=== PATIENT | female | born 1975 | race Two or more races ===

== ENCOUNTER → 2024-03-16 | Outpatient (CLI) | payer MEDICAID, SELFPAY ==
--- NOTE | 2024-03-16 13:34 | ECHO_ITS ---
Transthoracic Echo Report Ht (in): 66 Wt (lb): 156 Exam Location: Echo Lab Status: Outpatient Technical Services Representative: Yamilet Palencia Indications: Procedure Performed: BP: / HR: Rhythm: Sinus Technical Quality: Fair MEASUREMENTS (Male / Female) Normal Values 2D ECHO LV Diastolic Diameter PLAX 4.3 cm 4.2 - 5.9 / 3.9 - 5.3 cm LV Systolic Diameter PLAX 2.9 cm IVS Diastolic Thickness 0.6 cm 0.6 - 1.0 / 0.6 - 0.9 cm LVPW Diastolic Thickness 0.7 cm 0.6 - 1.0 / 0.6 - 0.9 cm LV Relative Wall Thickness 0.3 LVOT Diameter 1.7 cm LA Volume Index 17.3 cm?/m? 16 - 28 cm?/m? Ascending Aorta Diameter 2.5 cm M-MODE Aortic Root Diameter MM 2.7 cm LA Systolic Diameter MM 3.4 cm LA Ao Ratio MM 1.3 AV Cusp Separation MM 1.9 cm DOPPLER AV Peak Velocity 126.0 cm/s AV Peak Gradient 6.4 mmHg AV Mean Gradient 4.0 mmHg AV Velocity Time Integral 26.4 cm LVOT Peak Velocity 126.0 cm/s LVOT Peak Gradient 6.4 mmHg LVOT Velocity Time Integral 23.9 cm AV Area Cont Eq vti 2.1 cm? AV Area Cont Eq pk 2.3 cm? MV Peak Velocity 73.2 cm/s MV Peak Gradient 2.1 mmHg MV Mean Velocity 50.8 cm/s MV Mean Gradient 1.0 mmHg MV Area PHT 4.4 cm? Mitral E Point Velocity 64.0 cm/s Mitral A Point Velocity 80.0 cm/s Mitral E to A Ratio 0.8 LV E' Lateral Velocity 9.3 cm/s Mitral E to LV E' Lateral Ratio 6.9 LV E' Septal Velocity 9.4 cm/s Mitral E to LV E' Septal Ratio 6.8 FINDINGS Left Ventricle Normal left ventricular size, wall thickness, systolic function with no obvious regional wall motion abnormalities. The ejection fraction is visually estimated at 55-60%. Right Ventricle The right ventricle is normal in size and systolic function. Left Atrium The left atrium is normal by two-dimensional, color flow and Doppler imaging with no structural abnormalities, no thrombus formation present. Right Atrium The right atrium is normal by two-dimensional imaging, color flow and Doppler imaging with no struct ural abnormalities, no thrombus formation present. Atrial Septum The interatrial septum appears normal with no evidence of a shunt. Aorta The aorta is normal by two-dimensional, color flow and Doppler interrogation. Mitral Valve The mitral valve is normal by two-dimensional, color flow and Doppler interrogation. There is trace mitral valve regurgitation. Aortic Valve The aortic valve is trileaflet and normal by two-dimensional, color flow and Doppler interrogation. There is trace aortic valve regurgitation. Tricuspid Valve The tricuspid valve is normal by two-dimensional, color flow and Doppler interrogation. There is tra ce tricuspid valve regurgitation. Pulmonic Valve There is no significant pulmonic valve regurgitation. Vessels The pulmonary artery appears normal. The inferior vena cava pulmonary and hepatic veins appear josephine l. Pericardium The pericardium is normal by two-dimensional imaging. There is no significant pericardial effusion. CONCLUSIONS Indication: Malignant neoplasm upper-outer quadrant of r breast. Normal LV size and function. Estimated EF 55-60%. Stage 1 diastolic dysfunction. Normal RV size and function. Trace MR, AI, TR. Don Covington (Electronically Signed) Final Date: 16 March 2024 15:34
== END | disposition home or self-care (01) ==
PROVIDERS: PCP Internal Medicine; Referring Provider Internal Medicine Hematology & Oncology; Visit Provider Internal Medicine Hematology & Oncology
DX: I08.3 Combined rheumatic disorders of mitral, aortic and tricuspid valves (principal); C50.411 Malignant neoplasm of upper-outer quadrant of right female breast
CPT/HCPCS: 93306

== ENCOUNTER → 2024-06-30 | Outpatient (CLI) | payer MEDICAID, SELFPAY ==
--- NOTE | 2024-06-30 13:30 | ECHO_ITS ---
Transthoracic Echo Report Ht (in): 66 Wt (lb): 135 Exam Location: [facility] Status: Preadmit Patrol Sergeant: EDWIN Dong^^^^ Indications: Procedure Performed: BP: 118 / 73 HR: 75 Rhythm: Sinus Technical Quality: Good MEASUREMENTS (Male / Female) Normal Values 2D ECHO LV Diastolic Diameter PLAX 4.0 cm 4.2 - 5.9 / 3.9 - 5.3 cm LV Systolic Diameter PLAX 2.7 cm IVS Diastolic Thickness 0.7 cm 0.6 - 1.0 / 0.6 - 0.9 cm LVPW Diastolic Thickness 0.6 cm 0.6 - 1.0 / 0.6 - 0.9 cm LV Relative Wall Thickness 0.3 LVOT Diameter 1.6 cm Aortic Root Diameter 2.5 cm LA Systolic Diameter LX 3.0 cm 3.0 - 4.0 / 2.7 - 3.8 cm LA Volume Index 24.8 cm?/m? 16 - 28 cm?/m? Ascending Aorta Diameter 2.2 cm DOPPLER AV Peak Velocity 129.5 cm/s AV Peak Gradient 6.7 mmHg AV Mean Gradient 5.0 mmHg AV Velocity Time Integral 28.0 cm LVOT Peak Velocity 104.0 cm/s LVOT Peak Gradient 4.3 mmHg LVOT Velocity Time Integral 21.9 cm LVOT Cardiac Index 1954.7 cm?/min?m? AV Area Cont Eq vti 1.6 cm? AV Area Cont Eq pk 1.6 cm? MV Area PHT 4.1 cm? Mitral E Point Velocity 65.0 cm/s Mitral A Point Velocity 85.4 cm/s Mitral E to A Ratio 0.8 LV E' Lateral Velocity 9.1 cm/s Mitral E to LV E' Lateral Ratio 7.1 LV E' Septal Velocity 8.7 cm/s Mitral E to LV E' Septal Ratio 7.5 TR Peak Velocity 205.0 cm/s TR Peak Gradient 16.8 mmHg PV Peak Velocity 74.6 cm/s PV Peak Gradient 2.2 mmHg RVOT Peak Velocity 60.6 cm/s FINDINGS Left Ventricle Normal left ventricular size, wall thickness, systolic function with no obvious regional wall motion abnormalities. There is grade I diastolic dysfunction of the left ventricle (impaired relaxation pattern). The left ventricular ejection fraction is normal, estimated at 60-65%. Right Ventricle The right ventricle is normal in size and systolic function. The estimated right ventricular systolic pressure, 19 mmHg. Left Atrium The left atrium is normal by two-dimensional, color flow and Doppler imaging with no structural abnormalities, no thrombus formation present. Right Atrium The right atrium is normal by two-dimensional imaging, color flow and Doppler imaging with no structural abnormalities, no thrombus formation present. Atrial Septum The interatrial septum appears normal with no evidence of a shunt. Aorta The aorta is normal by two-dimensional, color flow and Doppler interrogation. Mitral Valve Trace to mild mitral regurgitation. Aortic Valve The aortic valve is trileaflet and normal by two-dimensional, color flow and Doppler interrogation. There is no significant aortic valve regurgitation. Tricuspid Valve There is mild tricuspid valve regurgitation. Pulmonic Valve Trivial pulmonic valve regurgitation. Vessels The pulmonary artery appears normal. The inferior vena cava pulmonary and hepatic veins appear normal. Pericardium The pericardium is normal by two-dimensional imaging. There is no significant pericardial effusion. CONCLUSIONS indication: cancer center The transthoracic study is normal by two-dimensional, color flow imaging and Doppler interrogation. Normal left ventricular size and function. Approximate ejection fraction is 65% Trace mitral and trace tricuspid regurgitation Lorene Welch (Electronically Signed) Final Date: 30 June 2024 14:59
== END | disposition home or self-care (01) ==
LOC: SDIM 13:26
PROVIDERS: PCP Family Medicine; Referring Provider Internal Medicine Hematology & Oncology; Visit Provider Internal Medicine Hematology & Oncology
DX: I08.1 Rheumatic disorders of both mitral and tricuspid valves (principal); C50.411 Malignant neoplasm of upper-outer quadrant of right female breast
CPT/HCPCS: 93306

== ENCOUNTER → 2024-07-20 | Outpatient (CLI) | payer MEDICAID, SELFPAY ==
[2024-07-20 08:37] LABS: Basophils % (Auto) 1 % (0-2.5); Eosinophils % (Auto) 0 % (0-10); Hematocrit 41.5 % (36.0-46.0); Hemoglobin 14.2 g/dL (12.0-16.0); Immature Granulocytes % (Auto) 0 % (0-0); Immature Granulocytes Auto 0.02 Thou/mm3 (0.00-0.00); Lymphocytes # (Auto) 2.1 Thou/mm3 (1.0-4.8); Lymphocytes % (Auto) 37 % (10-50); Mean Corpuscular HGB Conc 34.2 g/dl (31.0-37.0); Mean Corpuscular Hemoglobin 30.8 pg (25.0-35.0); Mean Corpuscular Volume 90 fL (80-100); Monocytes # (Auto) 0.5 Thou/mm3 (0.0-0.8); Monocytes % (Auto) 9 % (0-12); Neutrophils % (Auto) 53 % (37-80); Nucleated Red Blood Cell % 0 /100 WBC (0); Platelet Count 212 Thou/mm3 (140-440); RDW Standard Deviation 43.8 fL (36.4-46.3); Red Blood Count 4.61 Miln/mm3 (4.00-5.20); White Blood Count 5.7 Thou/mm3 (3.6-11.0)
[2024-07-20 09:14] LABS: Alanine Aminotransferase 95 U/L (10-49); Albumin, Serum 4.9 gm/dL (3.5-5.0); Albumin/Globulin Ratio 1.9 (1.2-2.2); Alkaline Phosphatase 142 U/L (46-116); Anion Gap 9 (7-16); Aspartate Amino Transferase 71 U/L (0-34); BUN/Creatinine Ratio 16 Ratio (12-20); Bilirubin,Total 0.7 mg/dL (0.3-1.2); Blood Urea Nitrogen 14 mg/dL (9-23); Calcium 10.2 mg/dL (8.3-10.6); Calcium (Corrected) 10.2 mg/dL (8.5-10.1); Carbon Dioxide 26.2 mMol/L (20.0-31.0); Chloride 105 mMol/L (98-107); Creatinine (Component) 0.9 mg/dL (0.6-1.3); Globulin 2.6 gm/dL (2.3-3.5); Glucose 143 mg/dL (74-106); Osmolality,Calculated 281 (275-295); Potassium 4.1 mMol/L (3.4-5.1); Sodium 140 mMol/L (136-145); Total Protein 7.5 gm/dL (5.7-8.2); eGFR > 60 See Note
[2024-07-20 09:15] LABS: CA 15-3 14.1 U/mL (<32.4)
== END | disposition home or self-care (01) ==
LOC: COPL 07:45
PROVIDERS: PCP Family Medicine; Referring Provider Internal Medicine Hematology & Oncology; Visit Provider Internal Medicine Hematology & Oncology
DX: C50.411 Malignant neoplasm of upper-outer quadrant of right female breast (principal)
CPT/HCPCS: 36415; 80053; 85025; 86300

== ENCOUNTER 2024-07-21 10:42 | Outpatient (RCR) | payer MEDICAID, SELFPAY ==
--- NOTE | 2024-07-21 14:01 | CTCFLWUP_ITS ---
Patient: CORTNEY MCMANUS : 1975 Page 2 of 2 FOLLOW UP NOTE DATE OF SERVICE: 07/21/2024 NAME: CORTNEY MCMANUS ACCOUNT: [id number] : 1975 AGE: 48 INTERVAL HISTORY: Chief Complaint Follow-up for stage 3 breast cancer treatment, joint pain from hormone-blocking medication and menopause-inducing injections History of Present Illness Cortney Xiao is a patient with a history of stage 3 breast cancer diagnosed in 2021, who presents for follow-up after completing Kadcyla treatment in July 2023. She is currently on hormone-blocking medication and menopause-inducing injections. The patient reports experiencing joint pain as a side effect of her current treatment regimen. She was previously prescribed ibuprofen for pain management but has been cautious about taking it due to concerns about her liver health. The patient also mentions a left pelvic mass that was removed by her g ynecologist, which was determined to be a non-cancerous leiomyoma. Cortney has been adherent to her treatment plan, including regular dental check- ups, which are important for her ongoing Zometa treatment. She saw a dentist in March and had cavities filled. patient do not have any dental issues .The patient has not reported any significant changes in her overall health status or daily functioning since her last visit. Medical History - Stage 3 breast cancer diagnosed in 2021 - Diabetes (implied by mention of diabetes medication) Surgical History - Mastectomy in 2022 for persistent breast cancer - Left pelvic mass removal (leiomyoma) by checkroom attendant Medications and Supplements - chemo Finished in July 2023. - Hormone-blocking medication - Causing joint pain. - Menopause-inducing injections - Causing joint pain. - Zometa - Exemestane - To be stopped for one week. and will start on anastrozole after that - Ibuprofen - Prescribed for pain. - Patient cautious about taking due to liver concerns. Review of Systems Musculoskeletal: Positive for joint pain. ONCOLOGY HISTORY: DIAGNOSIS: Solid left pelvic mass (MRI 02/13/2023). 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 S/p right axillary lymph node biopsy (12/31/2021) S/p 6 cycles of TCH chemotherapy in the neoadjuvant setting completed on 05/15/2022. Right modified radical mastectomy (06/25/2022) residual pT1b, pN2a disease was noted in the surgical specimen status s/p adjuvant radiation therapy to right chest (09/09/2022 - 10/29/2022) S/p Ado-Trastuzumab Emtansine (Kadcyla) adjuvant setting (09/10/2022?07/21/2023). He is also started on Lupron and Aromasin on 08/18/2022. Last menstrual period November 2021. BRCA 1and2 negative. REASON FOR TODAY?S VISIT: This is office follow-up visit. Ms. Mcmanus is here at [facility]. Since last visit she had biopsy of the pelvic mass. 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 She denies any pain in the pelvis. Denies any cough. Denies any chest pain abdominal pain or leg cramps. Currently she is on Lupron and Aromasin. Tolerating it very well without any significant side effects. Malignant neoplasm of upper-outer quadrant of right female breast [ICD10] C50.411 DATE OF DIAGNOSIS: STAGE/TNM: TREATMENT HISTORY: Care?Plan Start?Date Cycle Day Intent Taxotere,?Carboplatin,?Trastuzumab?1 01/30/2022 1 21 Palliative KADCYLA?adjuvant 09/10/2022 1 21 Curative?(adjuvant) Lupron?Depot?3.75?monthly 08/19/2022 1 28 Curative?(adjuvant) Zoledronic?Acid?4?mg?adjuvant 06/30/2023 1 180 Curative?(adjuvant) HISTORY OF PRESENT ILLNESS: Cortney Mcmanus is a 48-year-old SPA speaking female without any significant health problems started noticing a lump growing in her right for last 2 years. Early April 2021: Patient had right breast lump biopsy in [place]. The pathology report is not available to me. Middle of April 2021 she had what appears to be lumpectomy/excision biopsy of the right breast mass. 06/12/2021: Ms. Mcmanus was seen by radiation oncologist Dr. Phelps here at [facility] cancer center. 07/07/2021: Right breast ultrasound? 07/07/2021: Bilateral screening mammogram- 08/06/2021: Right breast diagnostic mammogram? 08/24/2021: Right breast ultrasound? 10/19/2021: Bilateral breast MRI with and without contrast 11/13/2021: CT scan of the chest abdomen and pelvis with IV contrast 11/18/2021: Bone scan? 12/13/2021: PET/CT scan? 12/31/2021: Right axillary ultrasound core biopsy 01/30/2022: Ms. Mcmanus received first cycle of TCH chemotherapy. 02/01/2022: CT scan of the abdomen and pelvis without contrast? 02/03/2022: MRI of the pelvis without contrast? 02/03/2022: Transvaginal ultrasound of pelvis? 02/12/2022: CT scan of the pelvis with IV contrast? 02/19/2022: Ms. Mcmanus received second cycle of TCH chemotherapy. 03/13/2022: Ms. Mcmanus had third cycle of TCH chemotherapy 04/03/2022: Ms. Mcmanus had fourth cycle of TCH chemotherapy. 05/02/2022: MRI of the abdomen with and without contrast? 05/15/2022: Ms. Mcmanus completed 6 cycles of TCH chemotherapy. 05/16/2022: Bilateral breast MRI with and without contrast 06/25/2022: Right modified radical mastectomy? 08/14/2022: PET/CT scan? 09/09/2022 - 10/29/2022: Ms. Mcmanus received adjuvant radiation therapy to the right chest. 08/18/2022: Ms. Mcmanus was started on triptorelin which was later changed to Lupron and Aromasin. 09/10/2022: Ms. Mcmanus is started on a low trastuzumab Emtansine in the adjuvant setting. 01/09/2023: Pelvic ultrasound 02/13/2023: MRI of the pelvis without contrast 07/13/2023: Transvaginal ultrasound? 09/08/2023: MRI of the pelvis without contrast 09/28/2023: CT-guided biopsy of the left pelvic mass? 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 Arimidex - 1 mg 1 tab Daily 2. exemestane - 25 mg 1 tab Daily Medications Last Reconciled by Lorie Everett MA on 07/21/2024 ALLERGIES: No Known Drug Allergies REVIEW OF SYSTEMS: A complete 14-point review of systems was performed and is negative except as noted in interval history. PHYSICAL EXAMINATION: VITAL SIGNS: Temperature?98, B/P?106/72, Oxygen?Saturation?97% Weight?159.4?lbs PAIN: 2 - Mild pain GENERAL APPEARANCE: Appears well, in no apparent distress, appropriately interactive. HEENT: Normocephalic, no temporal wasting, normal conjunctiva, no scleral icterus, normal hearing, lips without lesions, neck normal range of motion. CARDIOVASCULAR: Not assessed. PULMONARY: Normal respiratory effort, no respiratory distress or use of accessory muscles, speaking in full sentences, no tachypnea. EXTREMITIES: No pedal edema or cyanosis. SKIN: Normal skin appearance. NEUROLOGIC: Alert and oriented x4. PSHYCHIATRIC: Appropriate affect, mood normal, behavior normal, intact thought and speech. LABORATORY DATA: I have personally reviewed and interpreted each of the patient?s relevant lab tests, abnormal findings are below: Date 01/20/24 07/20/24 ??WHITE?BLOOD?COUNT?(Thou/mm3) 5.4 5.7 ??RED?BLOOD?COUNT?(Miln/mm3) 4.68 4.61 ??HEMOGLOBIN?(gm/dl) 14.5 14.2 ??HEMATOCRIT?(%) 43.4 41.5 ??PLATELET?COUNT?(Thou/mm3) 227 212 ??NEUTROPHILS?%,?AUTO?(%) 56 53 ??LYMPH?%,?AUTO?(%) 36 37 ??NEUTROPHILS,?AUTO?(Thou/mm3) 3.0 3.0 ??GLUCOSE,RANDOM?(mg/dL) 145?H 143?H ??BLOOD?UREA?NITROGEN?(mg/dL) 10 14 ??CREATININE?(mg/dL) 0.90 0.90 ??SODIUM?(mmol/L) 138 140 ??POTASSIUM?(mmol/L) 4.1 4.1 ??CHLORIDE?(mmol/L) 104 105 ??CrCl?(CandG)?(ml/min) 88.79 87.04 ??AST/SGOT?(Unit/L) 47?H 71?H ??ALT/SGPT?(Unit/L) 57?H 95?H ??ALKALINE?PHOSPHATASE?(Unit/L) 121?H 142?H ??BILIRUBIN,?TOTAL?(mg/dL) 0.7 0.7 ??PROTEIN?TOTAL?(gm/dl) 7.5 7.5 ??ALBUMIN,?SERUM?(gm/dl) 5.0 4.9 ??GLOBULIN?(gm/dl) 2.5 2.6 ??ALBUMIN/GLOBULIN?RATIO 2.0 1.9 ??CALCIUM,?SERUM?(mg/dL) 10.2 10.2 ??CALCIUM?SERUM?(CORRECTED)?(mg/dL) 10.2?H 10.2?H ASSESSMENT/PLAN: Cortney Xiao, female patient with history of stage 3 breast cancer diagnosed in 2021, treated with chemotherapy, mastectomy, and Kadcyla, now on hormone- blocking medication and menopause-inducing injections, presenting with joint pain and elevated liver enzymes. Stage 3 Breast Cancer (History) Assessment: Patient was diagnosed with stage 3 breast cancer in 2021. Initial treatment included chemotherapy followed by mastectomy in 2022 due to persistent cancer. Kadcyla was administered post-mastectomy until July 2023. Currently on hormone-blocking medication and menopause-inducing injections. Recent echocardiogram from June is normal, and blood work is generally good. However, liver enzymes are slightly elevated, necessitating further investigation. Plan: - Order PET CT scan to evaluate elevated liver enzymes - Switch from exemestane to Precedex for better liver compatibility - Stop exemestane for one week before starting Precedex on Thursday - Review liver enzymes before next bone injection - Await PET scan results before making further treatment decisions - Continue hormone-blocking medication and menopause-inducing injections - Avoid supplements that could affect liver function - Encourage increased water intake Joint Pain Assessment: Patient reports joint pain, likely a side effect of the menopause- inducing injections. Previously prescribed ibuprofen for pain management, but patient is cautious about taking it due to liver concerns. Plan: - Discontinue ibuprofen due to liver concerns - Monitor pain levels and reassess management strategy at follow-up Elevated Liver Enzymes Assessment: Recent blood work shows slightly elevated liver enzymes. This could be related to current medications, including diabetes medication. Alkaline phosphatase is also elevated. Further investigation is needed to determine the cause and potential interventions. Plan: - Order PET CT scan to evaluate liver - Switch from exemestane to Precedex for better liver compatibility - Review liver enzymes before next bone injection - Encourage increased water intake - Avoid supplements that could affect liver function Hypercalcemia Assessment: Blood work reveals slightly elevated calcium levels. This finding requires monitoring and potential intervention if it persists or worsens. Plan: - Monitor calcium levels in future blood work - Encourage adequate hydration Dental Health Maintenance Assessment: Dental health is crucial for continuing Zometa treatment. Patient saw a dentist in March and had cavities filled, indicating proactive dental care. Plan: - Continue regular dental check-ups - Maintain good oral hygiene for ongoing Zometa treatment ORDERS: Order # Description [id number] Comprehensive Metabolic Panel - 12 + CBC with Auto Diff [id number] PET/CT of Skull to mid-thigh for Restaging [id number] MD Follow Up 4 Week [id number] Infusion 1 Hour [id number] Infusion 1 Hour [id number] Infusion 1 Hour RETURN TO CLINIC: Dear Cortney xiao, Thank you for visiting today. Here is a summary of the escudero instructions: Medications: - Stop taking exemestane for one week - Start taking Precedex on Thursday - Continue hormone-blocking medication and menopause-inducing injections - Be cautious with ibuprofen use due to liver concerns Tests and Imaging: - A PET CT scan will be ordered Lifestyle Changes: - Drink plenty of water - Avoid supplements that could affect your liver Follow-up: - We will review your liver enzymes before the next bone injection - We will make decisions about treatment after the PET scan results Please reach out if you have any questions or concerns. Best Regards, jhony elliott, Oncology BILLING AND COMPLIANCE: I reviewed external records from providers outside my specialty as summarized above. I spent a total of 50 minutes on this patient?s care on the day of their visit excluding time spent related to any billed procedures. This time includes time spent with the patient as well as time spent documenting in the medical record, reviewing patients records and tests, obtaining history, placing orders, communicating with other healthcare professionals, counseling the patient, family or caregiver, and/or care coordination for the diagnoses above. Electronically Signed by: Jhony Elliott MD T: 1:58 PM CC: Varun?Mattie,? PCP: Kyrei Hui Referring: Kyrie Hui This document was completed utilizing speech recognition software. Grammatical errors, random word insertions, pronoun errors, and incomplete sentences are an occasional consequence of this system due to software limitations, ambient noise, and hardware issues. Any formal questions or concerns about the content, text or information contained within the body of this dictation should be directly addressed to the provider for clarification.
== END 2024-08-10 23:59 | disposition home or self-care (01) ==
LOC: SCTC 10:42
PROVIDERS: PCP Family Medicine; Referring Provider Family Medicine; Visit Provider Internal Medicine Hematology & Oncology
DX: C50.411 Malignant neoplasm of upper-outer quadrant of right female breast (principal); Z17.0 Estrogen receptor positive status [ER+]; Z17.22 Progesterone receptor negative status; Z17.32 Human epidermal growth factor receptor 2 negative status; Z92.21 Personal history of antineoplastic chemotherapy; Z92.3 Personal history of irradiation; Z90.11 Acquired absence of right breast and nipple; E83.52 Hypercalcemia; R74.8 Abnormal levels of other serum enzymes; M25.50 Pain in unspecified joint; Z79.811 Long term (current) use of aromatase inhibitors
CPT/HCPCS: 99213; G0463

== ENCOUNTER → 2024-09-01 | Outpatient (CLI) | payer MEDICAID, SELFPAY ==
[2024-08-31 16:57] LABS: HCG Qualitative,Urine Negative
--- NOTE | 2024-09-01 15:00 | XR_ITS ---
Examination: CT chest with intravenous contrast CT abdomen with intravenous contrast CT pelvis with intravenous contrast 2-D coronal and sagittal reconstructions Time of exam: The [address] pelvis September 28, 2023, MRI pelvis September 08, 2023, pelvic sonogram July 13, 2023, MRI pelvis February 13, 2023, nuclear medicine bone scan December 31, 2022, PET CT scan August 14, 2022 INDICATIONS: Diagnosis breast cancer, postright mastectomy restaging CTDI: vol (mGy) : 7.33 DLP: (mGycm): 543 Technique: Multiple axial images of the chest, abdomen and pelvis with intravenous contrast, 3.0 mm slice thickness. Images obtained post intravenous injection Isovue 370 60 cc. 2-D sagittal and coronal reconstructions. Low dose protocols were performed. One or more of the following dose reduction techniques were used; automated exposure control, adjustment of the mA and/or KV according to patient size, use of iterative reconstruction technique. Findings: A breast implant is intact No breast chest wall lesion or axillary lymphadenopathy Thoracic aorta is not enlarged No pulmonary artery filling defects No paratracheal tracheobronchial or bronchopulmonary adenopathy No pneumonia or pulmonary edema or pleural disease Axial image 112 demonstrates 9 mm enhancing lesion dome of the liver on the right No gallstones Spleen not enlarged No pancreatic or adrenal mass No renal or ureteral calculi, no hydronephrosis Aorta normal size No interval abdominal pelvic lymphadenopathy Normal appendix No bowel obstruction Absent uterus Intact pelvis Moderate osteopenia Moderate disc narrowing L5-S1 IMPRESSION: 9 mm enhancing lesion dome of the liver on the right, recommend MRI abdomen liver follow-up pre and post contrast
== END | disposition home or self-care (01) ==
LOC: SCAT 14:24
PROVIDERS: PCP Family Medicine; Referring Provider Internal Medicine Hematology & Oncology; Visit Provider Internal Medicine Hematology & Oncology
DX: K76.9 Liver disease, unspecified (principal); C50.411 Malignant neoplasm of upper-outer quadrant of right female breast; Z32.00 Encounter for pregnancy test, result unknown
CPT/HCPCS: 71260; 74177; 81025; A4649; Q9967

== ENCOUNTER → 2024-09-07 | Outpatient (CLI) | payer MEDICAID, SELFPAY ==
[2024-09-07 10:55] LABS: Alanine Aminotransferase 62 U/L (10-49); Albumin, Serum 4.9 gm/dL (3.5-5.0); Alkaline Phosphatase 151 U/L (46-116); Anion Gap 11 (7-16); Aspartate Amino Transferase 41 U/L (0-34); BUN/Creatinine Ratio 14 Ratio (12-20); Bilirubin,Total 0.7 mg/dL (0.3-1.2); Blood Urea Nitrogen 11 mg/dL (9-23); Calcium 9.3 mg/dL (8.3-10.6); Calcium (Corrected) 9.3 mg/dL (8.5-10.1); Carbon Dioxide 26.2 mMol/L (20.0-31.0); Chloride 105 mMol/L (98-107); Creatinine (Component) 0.8 mg/dL (0.6-1.3); Globulin 2.4 gm/dL (2.3-3.5); Glucose 139 mg/dL (74-106); Osmolality,Calculated 284 (275-295); Sodium 142 mMol/L (136-145); Total Protein 7.3 gm/dL (5.7-8.2); eGFR > 60 See Note
== END | disposition home or self-care (01) ==
LOC: SCTO 09:38
PROVIDERS: PCP Internal Medicine; Referring Provider Internal Medicine Hematology & Oncology; Visit Provider Internal Medicine Hematology & Oncology
DX: C50.411 Malignant neoplasm of upper-outer quadrant of right female breast (principal)
CPT/HCPCS: 36415; 80053

== ENCOUNTER 2024-09-08 10:06 | Outpatient (RCR) | payer MEDICAID, SELFPAY ==
[2024-08-22 08:52] LABS: Basophils % (Auto) 0 % (0-2.5); Eosinophils % (Auto) 0 % (0-10); Hematocrit 37.7 % (36.0-46.0); Hemoglobin 13.3 g/dL (12.0-16.0); Immature Granulocytes % (Auto) 0 % (0-0); Immature Granulocytes Auto 0.02 Thou/mm3 (0.00-0.00); Lymphocytes % (Auto) 40 % (10-50); Mean Corpuscular HGB Conc 35.3 g/dl (31.0-37.0); Mean Corpuscular Hemoglobin 30.9 pg (25.0-35.0); Mean Corpuscular Volume 88 fL (80-100); Monocytes # (Auto) 0.5 Thou/mm3 (0.0-0.8); Monocytes % (Auto) 10 % (0-12); Neutrophils # (Auto) 2.5 Thou/mm3 (1.8-7.7); Neutrophils % (Auto) 49 % (37-80); Nucleated Red Blood Cell % 0 /100 WBC (0); Platelet Count 185 Thou/mm3 (140-440); RDW Standard Deviation 42.5 fL (36.4-46.3); White Blood Count 5.1 Thou/mm3 (3.6-11.0)
[2024-08-22 09:10] LABS: Alanine Aminotransferase 89 U/L (10-49); Albumin, Serum 4.9 gm/dL (3.5-5.0); Albumin/Globulin Ratio 2.1 (1.2-2.2); Alkaline Phosphatase 175 U/L (46-116); Anion Gap 7 (7-16); Aspartate Amino Transferase 52 U/L (0-34); BUN/Creatinine Ratio 14 Ratio (12-20); Bilirubin,Total 0.7 mg/dL (0.3-1.2); Blood Urea Nitrogen 10 mg/dL (9-23); Carbon Dioxide 27.5 mMol/L (20.0-31.0); Chloride 103 mMol/L (98-107); Creatinine (Component) 0.7 mg/dL (0.6-1.3); Globulin 2.3 gm/dL (2.3-3.5); Glucose 141 mg/dL (74-106); Osmolality,Calculated 274 (275-295); Potassium 3.7 mMol/L (3.4-5.1); Sodium 137 mMol/L (136-145); Total Protein 7.2 gm/dL (5.7-8.2); eGFR > 60 See Note
--- NOTE | 2024-09-01 14:17 | CTCFLWUP_ITS ---
Patient: CORTNEY LYA : 1975 Page 13 of 14 FOLLOW UP NOTE DATE OF SERVICE: 08/24/2024 NAME: CORTNEY LAY ACCOUNT: [id number] : 1975 AGE: 48 INTERVAL HISTORY: History of Present Illness Cortney Xiao is a patient with a history of stage 3 breast cancer diagnosed in 2021, who presents for follow-up after completing Kadcyla treatment in July 2023. The patient reports experiencing joint pain as a side effect of her current treatment regimen. She was previously prescribed ibuprofen for pain management but has been cautious about taking it due to concerns about her liver health. The patient also mentions a left pelvic mass that was removed by her g ynecologist, which was determined to be a non-cancerous leiomyoma. Cortney has been adherent to her treatment plan, including regular dental check- ups, which are important for her ongoing Zometa treatment. She saw a dentist in March and had cavities filled. patient do not have any dental issues .The patient has not reported any significant changes in her overall health status or daily functioning since her last visit. 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 - Hormone-blocking medication - Causing joint pain. - Menopause-inducing injections - Causing joint pain. - Zometa - Exemestane - To be stopped for one week. and will start on anastrozole after that - Ibuprofen - Prescribed for pain. - Patient cautious about taking due to liver concerns. Review of Systems Musculoskeletal: Positive for joint pain. ONCOLOGY HISTORY: DIAGNOSIS: Solid left pelvic mass (MRI 02/13/2023). Biopsy showed leiomyoma (09/28/2023) Stage IIIa ER positive, SD negative, HER2/arvin overexpressed infiltrating ductal carcinoma of the right breast (06/25/2022). S/p right axillary lymph node biopsy (12/31/2021) S/p 6 cycles of TCH chemotherapy in the neoadjuvant setting completed on 05/15/2022. Right modified radical mastectomy (06/25/2022) residual pT1b, pN2a disease was noted in the surgical specimen status s/p adjuvant radiation therapy to right chest (09/09/2022 - 10/29/2022) S/p Ado-Trastuzumab Emtansine (Kadcyla) adjuvant setting (09/10/2022?07/21/2023). He is also started on Lupron and Aromasin on 08/18/2022. Last menstrual period November 2021. BRCA 1and2 negative. REASON FOR TODAY?S VISIT: This is office follow-up visit. Ms. Lay is here at [facility]. Since last visit she had biopsy of the pelvic mass. 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 She denies any pain in the pelvis. Denies any cough. Denies any chest pain abdominal pain or leg cramps. Currently she is on Lupron and Aromasin. Tolerating it very well without any significant side effects. Malignant neoplasm of upper-outer quadrant of right female breast [ICD10] C50.411 DATE OF DIAGNOSIS: STAGE/TNM: TREATMENT HISTORY: Care?Plan Start?Date Cycle Day Intent Taxotere,?Carboplatin,?Trastuzumab?1 01/30/2022 1 21 Palliative KADCYLA?adjuvant 09/10/2022 1 21 Curative?(adjuvant) Lupron?Depot?3.75?monthly 08/19/2022 1 28 Curative?(adjuvant) Zoledronic?Acid?4?mg?adjuvant 06/30/2023 1 180 Curative?(adjuvant) HISTORY OF PRESENT ILLNESS: Cortney Lay is a 48-year-old S[place] speaking female without any significant health problems started noticing a lump growing in her right for last 2 years. Early April 2021: Patient had right breast lump biopsy in [place]. The pathology report is not available to me. Middle of April 2021 she had what appears to be lumpectomy/excision biopsy of the right breast mass. 06/12/2021: Ms. Lay was seen by radiation oncologist Dr. Mattie silveira at [facility]. 07/07/2021: Right breast ultrasound? 07/07/2021: Bilateral screening mammogram- 08/06/2021: Right breast diagnostic mammogram? 08/24/2021: Right breast ultrasound? 10/19/2021: Bilateral breast MRI with and without contrast 11/13/2021: CT scan of the chest abdomen and pelvis with IV contrast 11/18/2021: Bone scan? 12/13/2021: PET/CT scan? 12/31/2021: Right axillary ultrasound core biopsy 01/30/2022: Ms. Lay received first cycle of TCH chemotherapy. 02/01/2022: CT scan of the abdomen and pelvis without contrast? 02/03/2022: MRI of the pelvis without contrast? 02/03/2022: Transvaginal ultrasound of pelvis? 02/12/2022: CT scan of the pelvis with IV contrast? 02/19/2022: Ms. Lay received second cycle of TCH chemotherapy. 03/13/2022: Ms. Lay had third cycle of TCH chemotherapy 04/03/2022: Ms. Lay had fourth cycle of TCH chemotherapy. 05/02/2022: MRI of the abdomen with and without contrast? 05/15/2022: Ms. Lay completed 6 cycles of TCH chemotherapy. 05/16/2022: Bilateral breast MRI with and without contrast 06/25/2022: Right modified radical mastectomy? 08/14/2022: PET/CT scan? 09/09/2022 - 10/29/2022: Ms. Lay received adjuvant radiation therapy to the right chest. 08/18/2022: Ms. Lay was started on triptorelin which was later changed to Lupron and Aromasin. 09/10/2022: Ms. Lay is started on a low trastuzumab Emtansine in the adjuvant setting. 01/09/2023: Pelvic ultrasound 02/13/2023: MRI of the pelvis without contrast 07/13/2023: Transvaginal ultrasound? 09/08/2023: MRI of the pelvis without contrast 09/28/2023: CT-guided biopsy of the left pelvic mass? OTHER MEDICAL HISTORY/CONDITIONS: FAMILY HISTORY: SOCIAL HISTORY: [employer] HISTORY: MEDICATIONS: 1. Arimidex - 1 mg 1 tab Daily 2. atorvastatin - 20 mg 1 tab Daily 3. hydrOXYzine HCl - 50 mg 1 tab Every day before sleep 4. metFORMIN - 500 mg 1 tab In the evening Medications Last Reconciled by Susy Singer MA on 08/24/2024 ALLERGIES: No Known Drug Allergies REVIEW OF SYSTEMS: A complete 14-point review of systems was performed and is negative except as noted in interval history. PHYSICAL EXAMINATION: VITAL SIGNS: Temperature?98.9, B/P?122/73, Oxygen?Saturation?98% PAIN: 0 - No pain GENERAL APPEARANCE: Appears well, in no apparent distress, appropriately interactive. HEENT: Normocephalic, no temporal wasting, normal conjunctiva, no scleral icterus, normal hearing, lips without lesions, neck normal range of motion. CARDIOVASCULAR: Not assessed. PULMONARY: Normal respiratory effort, no respiratory distress or use of accessory muscles, speaking in full sentences, no tachypnea. EXTREMITIES: No pedal edema or cyanosis. SKIN: Normal skin appearance. NEUROLOGIC: Alert and oriented x4. PSHYCHIATRIC: Appropriate affect, mood normal, behavior normal, intact thought and speech. LABORATORY DATA: I have personally reviewed and interpreted each of the patient?s relevant lab tests, abnormal findings are below: Date 07/20/24 08/22/24 ??WHITE?BLOOD?COUNT?(Thou/mm3) 5.7 5.1 ??RED?BLOOD?COUNT?(Miln/mm3) 4.61 4.30 ??HEMOGLOBIN?(gm/dl) 14.2 13.3 ??HEMATOCRIT?(%) 41.5 37.7 ??PLATELET?COUNT?(Thou/mm3) 212 185 ??NEUTROPHILS?%,?AUTO?(%) 53 49 ??LYMPH?%,?AUTO?(%) 37 40 ??NEUTROPHILS,?AUTO?(Thou/mm3) 3.0 2.5 ??GLUCOSE,RANDOM?(mg/dL) 143?H 141?H ??BLOOD?UREA?NITROGEN?(mg/dL) 14 10 ??CREATININE?(mg/dL) 0.90 0.70 ??SODIUM?(mmol/L) 140 137 ??POTASSIUM?(mmol/L) 4.1 3.7 ??CHLORIDE?(mmol/L) 105 103 ??CrCl?(CandG)?(ml/min) 87.04 113.73 ??AST/SGOT?(Unit/L) 71?H 52?H ??ALT/SGPT?(Unit/L) 95?H 89?H ??ALKALINE?PHOSPHATASE?(Unit/L) 142?H 175?H ??BILIRUBIN,?TOTAL?(mg/dL) 0.7 0.7 ??PROTEIN?TOTAL?(gm/dl) 7.5 7.2 ??ALBUMIN,?SERUM?(gm/dl) 4.9 4.9 ??GLOBULIN?(gm/dl) 2.6 2.3 ??ALBUMIN/GLOBULIN?RATIO 1.9 2.1 ??CALCIUM,?SERUM?(mg/dL) 10.2 10.0 ??CALCIUM?SERUM?(CORRECTED)?(mg/dL) 10.2?H 10.0 ASSESSMENT/PLAN: Cortney Xiao, female patient with history of stage 3 breast cancer diagnosed in 2021, treated with chemotherapy, mastectomy, and Kadcyla, now on hormone- blocking medication and oophorectomy , presenting with joint pain and elevated liver enzymes. Stage 3 Breast Cancer (History) Assessment: Patient was diagnosed with stage 3 breast cancer in 2021. Initial treatment included chemotherapy followed by mastectomy in 2022 due to persistent cancer. Kadcyla was administered post-mastectomy until July 2023. Currently on hormone-blocking medication. Recent echocardiogram from June is normal, and blood work is generally good. However, liver enzymes are slightly elevated, necessitating further investigation. Plan: - Order PET CT scan to evaluate elevated liver enzymes - exemestane stopped - Review liver enzymes before next bone injection - Await PET scan results before making further treatment decisions - - Avoid supplements that could affect liver function - Encourage increased water intake Joint Pain Assessment Previously prescribed ibuprofen for pain management, but patient is cautious about taking it due to liver concerns. Plan: - Discontinue ibuprofen due to liver concerns - Monitor pain levels and reassess management strategy at follow-up Elevated liver enzymes Assessment: Patient's liver enzymes, particularly alkaline phosphatase, have increased despite discontinuation of exemestane. ALT and AST have decreased. The etiology is unclear at this time. Differential diagnoses include gallbladder disease, liver inflammation, or medication-induced liver injury. Patient reports pain after eating fatty foods, which could be consistent with gallbladder disease. A PET-CT scan is scheduled for September 01 to further evaluate. Plan: - Complete PET-CT scan on September 01 - Order ultrasound of liver and gallbladder - Discontinue all medications for 2-3 weeks, except for diabetes and blood pressure medications - Follow-up appointment scheduled for May 26th - Patient to bring all medication bottles to next appointment Urinary tract infection (recent) Assessment: Patient reports a recent urinary tract infection diagnosed by her PCP. She completed a 4-day course of antibiotics (name unknown) but notes that antibiotic courses are typically 7-10 days. Plan: - Educate patient on importance of completing full course of antibiotics - Advise patient to document medication names and dosages for future reference Hypertension Assessment: Patient mentions a recent change in hormone medication by her PCP due to high blood pressure concerns. Plan: - Continue current antihypertensive medication (not specified) - Monitor blood pressure at follow-up visits Diabetes mellitus Assessment: Patient reports taking metformin for diabetes management. Plan: - Continue metformin (dose not specified) Hyperlipidemia Assessment: Patient reports taking atorvastatin for cholesterol management. Plan: - Discontinue atorvastatin for 2-3 weeks as part of medication hold to evaluate liver enzyme elevation - Reassess at follow-up appointment on September 05 Dental Health Maintenance Assessment: Dental health is crucial for continuing Zometa treatment. Patient saw a dentist in March and had cavities filled, indicating proactive dental care. Plan: - Continue regular dental check-ups - Maintain good oral hygiene for ongoing Zometa treatment ORDERS: Order # Description [id number] Infusion 1 Hour [id number] Infusion 1 Hour [id number] Infusion 1 Hour RETURN TO CLINIC: 2-3 weeeks BILLING AND COMPLIANCE: I reviewed external records from providers outside my specialty as summarized above. I spent a total of 50 minutes on this patient?s care on the day of their visit excluding time spent related to any billed procedures. This time includes time spent with the patient as well as time spent documenting in the medical record, reviewing patients records and tests, obtaining history, placing orders, communicating with other healthcare professionals, counseling the patient, family or caregiver, and/or care coordination for the diagnoses above. Electronically Signed by: Familia Hadley MD T: 12:03 AM CC: [place],? PCP: Kyrie Hui Referring: Kyrie Hui This document was completed utilizing speech recognition software. Grammatical errors, random word insertions, pronoun errors, and incomplete sentences are an occasional consequence of this system due to software limitations, ambient noise, and hardware issues. Any formal questions or concerns about the content, text or information contained within the body of this dictation should be directly addressed to the provider for clarification.
--- NOTE | 2024-09-11 23:01 | CTCFLWUP_ITS ---
Patient: CORTNEY LAY : 1975 Page 11 of 14 FOLLOW UP NOTE DATE OF SERVICE: 09/08/2024 NAME: CORTNEY LAY ACCOUNT: [id number] : 1975 AGE: 48 INTERVAL HISTORY: Chief Complaint Follow-up for abnormal liver findings on CT scan, recent blood loss Cortney Xiao is a patient with a history of stage 3 breast cancer diagnosed in 2021, who presents for follow-up after completing Kadcyla treatment in July 2023. The patient reports experiencing joint pain as a side effect of her current treatment regimen. She was previously prescribed ibuprofen for pain management but has been cautious about taking it due to concerns about her liver health. The patient also mentions a left pelvic mass that was removed by her g ynecologist, which was determined to be a non-cancerous leiomyoma. Cortney has been adherent to her treatment plan, including regular dental check- ups, which are important for her ongoing Zometa treatment. She saw a dentist in March and had cavities filled. patient do not have any dental issues .The patient has not reported any significant changes in her overall health status or daily functioning since her last visit. Perla Lay presents for follow-up of her liver abnormalities and cancer management. She reports experiencing significant blood loss this month. The patient recently changed her medication to anastrozole. A small abnormality was previously detected on the patient's CT scan of the liver, which is currently under investigation. The nature and significance of this finding are unknown at this time, causing some anxiety for the patient. Her liver enzymes were elevated but have since decreased, though they remain above normal levels. The patient has undergone a hysterectomy and oophorectomy in the past, as evidenced by the mention that she no longer has ovaries. The patient's treatment regimen is being adjusted. She has been instructed to discontinue all medications except for anastrozole, which she is to start taking at a dosage of one tablet daily. This change is being implemented to monitor its effect on her liver enzymes and overall liver function. Medications and Supplements - Anastrozole - One tablet daily - Recently changed to this medication - Lupron - Discontinued (patient doesn't have ovaries) Review of Systems Gastrointestinal: Positive for blood loss. 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 - Hormone-blocking medication - Causing joint pain. - Menopause-inducing injections - Causing joint pain. - Zometa - Exemestane - To be stopped for one week. and will start on anastrozole after that - Ibuprofen - Prescribed for pain. - Patient cautious about taking due to liver concerns. Review of Systems Musculoskeletal: Positive for joint pain. ONCOLOGY HISTORY:?[facility] On[facility] Hx? DIAGNOSIS: Solid left pelvic mass (MRI 02/13/2023). Biopsy showed leiomyoma (09/28/2023) Stage IIIa ER positive, ME negative, HER2/arvin overexpressed infiltrating ductal carcinoma of the right breast (06/25/2022). S/p right axillary lymph node biopsy (12/31/2021) S/p 6 cycles of TCH chemotherapy in the neoadjuvant setting completed on 05/15/2022. Right modified radical mastectomy (06/25/2022) residual pT1b, pN2a disease was noted in the surgical specimen status s/p adjuvant radiation therapy to right chest (09/09/2022 - 10/29/2022) S/p Ado-Trastuzumab Emtansine (Kadcyla) adjuvant setting (09/10/2022?07/21/2023). He is also started on Lupron and Aromasin on 08/18/2022. Last menstrual period November 2021. BRCA 1and2 negative. REASON FOR TODAY?S VISIT: This is office follow-up visit. Ms. Lay is here at [facility]. Since last visit she had biopsy of the pelvic mass. 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 She denies any pain in the pelvis. Denies any cough. Denies any chest pain abdominal pain or leg cramps. Currently she is on Lupron and Aromasin. Tolerating it very well without any significant side effects. Malignant neoplasm of upper-outer quadrant of right female breast [ICD10] C50.411 DATE OF DIAGNOSIS: STAGE/TNM: TREATMENT HISTORY: Care?Plan Start?Date Cycle Day Intent Taxotere,?Carboplatin,?Trastuzumab?1 01/30/2022 1 21 Palliative KADCYLA?adjuvant 09/10/2022 1 21 Curative?(adjuvant) Lupron?Depot?3.75?monthly 08/19/2022 1 28 Curative?(adjuvant) Zoledronic?Acid?4?mg?adjuvant 06/30/2023 1 180 Curative?(adjuvant) HISTORY OF PRESENT ILLNESS: Cortney Lay is a 48-year-old S[place] speaking female without any significant health problems started noticing a lump growing in her right for last 2 years. Early April 2021: Patient had right breast lump biopsy in [place]. The pathology report is not available to me. Middle of April 2021 she had what appears to be lumpectomy/excision biopsy of the right breast mass. 06/12/2021: Ms. Lay was seen by radiation oncologist Dr. Mattie silveira at [facility]. 07/07/2021: Right breast ultrasound? 07/07/2021: Bilateral screening mammogram- 08/06/2021: Right breast diagnostic mammogram? 08/24/2021: Right breast ultrasound? 10/19/2021: Bilateral breast MRI with and without contrast 11/13/2021: CT scan of the chest abdomen and pelvis with IV contrast 11/18/2021: Bone scan? 12/13/2021: PET/CT scan? 12/31/2021: Right axillary ultrasound core biopsy 01/30/2022: Ms. Lay received first cycle of TCH chemotherapy. 02/01/2022: CT scan of the abdomen and pelvis without contrast? 02/03/2022: MRI of the pelvis without contrast? 02/03/2022: Transvaginal ultrasound of pelvis? 02/12/2022: CT scan of the pelvis with IV contrast? 02/19/2022: Ms. Lay received second cycle of TCH chemotherapy. 03/13/2022: Ms. Lay had third cycle of TCH chemotherapy 04/03/2022: Ms. Lay had fourth cycle of TCH chemotherapy. 05/02/2022: MRI of the abdomen with and without contrast? 05/15/2022: Ms. Lay completed 6 cycles of TCH chemotherapy. 05/16/2022: Bilateral breast MRI with and without contrast 06/25/2022: Right modified radical mastectomy? 08/14/2022: PET/CT scan? 09/09/2022 - 10/29/2022: Ms. Lay received adjuvant radiation therapy to the right chest. 08/18/2022: Ms. Lay was started on triptorelin which was later changed to Lupron and Aromasin. 09/10/2022: Ms. Lay is started on a low trastuzumab Emtansine in the adjuvant setting. 01/09/2023: Pelvic ultrasound 02/13/2023: MRI of the pelvis without contrast 07/13/2023: Transvaginal ultrasound? 09/08/2023: MRI of the pelvis without contrast 09/28/2023: CT-guided biopsy of the left pelvic mass? OTHER MEDICAL HISTORY/CONDITIONS: FAMILY HISTORY: ?Clone Family Hx? 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 Arimidex - 1 mg 1 tab Daily 2. atorvastatin - 20 mg 1 tab Daily 3. hydrOXYzine HCl - 50 mg 1 tab Every day before sleep 4. metFORMIN - 500 mg 1 tab In the evening?Palabra Meds? Medications Last Reconciled by Susy Singer MA on 09/08/2024 ALLERGIES: No Known Drug Allergies REVIEW OF SYSTEMS: A complete 14-point review of systems was performed and is negative except as noted in interval history. PHYSICAL EXAMINATION:?[facility] PE? VITAL SIGNS: Temperature?98.7, B/P?112/74, Oxygen?Saturation?99% PAIN: 4 - Moderate pain GENERAL APPEARANCE: Appears well, in no apparent distress, appropriately interactive. HEENT: Normocephalic, no temporal wasting, normal conjunctiva, no scleral icterus, normal hearing, lips without lesions, neck normal range of motion. CARDIOVASCULAR: Not assessed. PULMONARY: Normal respiratory effort, no respiratory distress or use of accessory muscles, speaking in full sentences, no tachypnea. EXTREMITIES: No pedal edema or cyanosis. SKIN: Normal skin appearance. NEUROLOGIC: Alert and oriented x4. PSHYCHIATRIC: Appropriate affect, mood normal, behavior normal, intact thought and speech. LABORATORY DATA: I have personally reviewed and interpreted each of the patient?s relevant lab tests, abnormal findings are below: Date 07/20/24 08/22/24 09/07/24 ??WHITE?BLOOD?COUNT?(Thou/mm3) 5.7 5.1 ? ??RED?BLOOD?COUNT?(Miln/mm3) 4.61 4.30 ? ??HEMOGLOBIN?(gm/dl) 14.2 13.3 ? ??HEMATOCRIT?(%) 41.5 37.7 ? ??PLATELET?COUNT?(Thou/mm3) 212 185 ? ??NEUTROPHILS?%,?AUTO?(%) 53 49 ? ??LYMPH?%,?AUTO?(%) 37 40 ? ??NEUTROPHILS,?AUTO?(Thou/mm3) 3.0 2.5 ? ??GLUCOSE,RANDOM?(mg/dL) ? 141?H 139?H ??BLOOD?UREA?NITROGEN?(mg/dL) ? 10 11 ??CREATININE?(mg/dL) ? 0.70 0.80 ??SODIUM?(mmol/L) ? 137 142 ??POTASSIUM?(mmol/L) ? 3.7 4.0 ??CHLORIDE?(mmol/L) ? 103 105 ??CrCl?(CandG)?(ml/min) ? 113.73 98.78 ??AST/SGOT?(Unit/L) ? 52?H 41?H ??ALT/SGPT?(Unit/L) ? 89?H 62?H ??ALKALINE?PHOSPHATASE?(Unit/L) ? 175?H 151?H ??BILIRUBIN,?TOTAL?(mg/dL) ? 0.7 0.7 ??PROTEIN?TOTAL?(gm/dl) ? 7.2 7.3 ??ALBUMIN,?SERUM?(gm/dl) ? 4.9 4.9 ??GLOBULIN?(gm/dl) ? 2.3 2.4 ??ALBUMIN/GLOBULIN?RATIO ? 2.1 2.0 ??CALCIUM,?SERUM?(mg/dL) ? 10.0 9.3 ??CALCIUM?SERUM?(CORRECTED)?(mg/dL) ? 10.0 9.3 ASSESSMENT/PLAN:?Caridad Hadley Assessment/Plan? Cortney Xiao, female patient with history of stage 3 breast cancer diagnosed in 2021, treated with chemotherapy, mastectomy, and Kadcyla, now on hormone- blocking medication and oophorectomy , presenting with joint pain and elevated liver enzymes. Stage 3 Breast Cancer (History) Assessment: Patient was diagnosed with stage 3 breast cancer in 2021. Initial treatment included chemotherapy followed by mastectomy in 2022 due to persistent cancer. Kadcyla was administered post-mastectomy until July 2023. Currently on hormone-blocking medication. Recent echocardiogram from June is normal, and blood work is generally good. However, liver enzymes are slightly elevated, necessitating further investigation. - - Avoid supplements that could affect liver function - Encourage increased water intake Plan: - Start anastrozole 1 tablet daily - Discontinue all other medications except for anastrozole - Monitor liver function tests for potential medication-induced hepatotoxicity - Follow-up in 3-4 weeks to assess tolerance and review liver enzyme results Abnormal liver finding Assessment: CT scan revealed a small, unidentified lesion in the liver. Liver enzymes were previously elevated but have since decreased, though they remain above normal limits. The etiology of the liver abnormalities is currently unknown. Differential diagnoses include benign lesions (e.g., hemangioma, focal nodular hyperplasia) or malignancy. Further investigation is warranted to characterize the lesion and determine the cause of persistent liver enzyme elevation. Plan: - Order MRI of the liver to further evaluate the lesion identified on CT - Order abdominal ultrasound to assess bile ducts, gallbladder, and evaluate for potential stones - Repeat liver function tests in 3 weeks - Refer patient to a tertiary care center for additional opinion - Follow-up appointment in 3-4 weeks to review results Anemia Assessment: Patient reported significant blood loss this month. Etiology and severity of anemia are not specified in the transcript. Plan: - Obtain previous blood loss reports for review Urinary tract infection (recent) Assessment: Patient reports a recent urinary tract infection diagnosed by her PCP. She completed a 4-day course of antibiotics (name unknown) but notes that antibiotic courses are typically 7-10 days. Plan: - Educate patient on importance of completing full course of antibiotics - Advise patient to document medication names and dosages for future reference Hypertension Assessment: Patient mentions a recent change in hormone medication by her PCP due to high blood pressure concerns. Plan: - Continue current antihypertensive medication (not specified) - Monitor blood pressure at follow-up visits Diabetes mellitus Assessment: Patient reports taking metformin for diabetes management. Plan: - Continue metformin (dose not specified) Hyperlipidemia Assessment: Patient reports taking atorvastatin for cholesterol management. Plan: - Discontinue atorvastatin for 2-3 weeks as part of medication hold to evaluate liver enzyme elevation - Reassess at follow-up appointment on September 05 Dental Health Maintenance Assessment: Dental health is crucial for continuing Zometa treatment. Patient saw a dentist in March and had cavities filled, indicating proactive dental care. Plan: - Continue regular dental check-ups - Maintain good oral hygiene for ongoing Zometa treatment ORDERS: Order # Description [id number] Infusion 1 Hour [id number] Infusion 1 Hour [id number] Infusion 1 Hour RETURN TO CLINIC: BILLING AND COMPLIANCE: I reviewed external records from providers outside my specialty as summarized above. I spent a total of 50 minutes on this patient?s care on the day of their visit excluding time spent related to any billed procedures. This time includes time spent with the patient as well as time spent documenting in the medical record, reviewing patients records and tests, obtaining history, placing orders, communicating with other healthcare professionals, counseling the patient, family or caregiver, and/or care coordination for the diagnoses above. Electronically Signed by: Familia Hadley MD T: 10:59 PM CC: [place]? PCP: Kyrie Hui Referring: Kyrie Hui This document was completed utilizing speech recognition software. Grammatical errors, random word insertions, pronoun errors, and incomplete sentences are an occasional consequence of this system due to software limitations, ambient noise, and hardware issues. Any formal questions or concerns about the content, text or information contained within the body of this dictation should be directly addressed to the provider for clarification.
== END 2024-09-10 23:59 | disposition home or self-care (01) ==
LOC: SCTC 10:06
PROVIDERS: PCP Family Medicine; Referring Provider Family Medicine; Visit Provider Internal Medicine Hematology & Oncology
DX: C50.411 Malignant neoplasm of upper-outer quadrant of right female breast (principal); Z17.0 Estrogen receptor positive status [ER+]; Z17.22 Progesterone receptor negative status; Z17.32 Human epidermal growth factor receptor 2 negative status; I10 Essential (primary) hypertension; E11.9 Type 2 diabetes mellitus without complications; Z79.84 Long term (current) use of oral hypoglycemic drugs; E78.5 Hyperlipidemia, unspecified; D21.5 Benign neoplasm of connective and other soft tissue of pelvis; Z90.11 Acquired absence of right breast and nipple; Z79.811 Long term (current) use of aromatase inhibitors; Z92.3 Personal history of irradiation; R74.8 Abnormal levels of other serum enzymes
CPT/HCPCS: 36415; 80053; 85025; 96365; 99212; 99213; A4216; J3489; J7040; J9267; G0463

== ENCOUNTER → 2024-09-15 | Outpatient (CLI) | payer MEDICAID, SELFPAY ==
--- NOTE | 2024-09-15 11:30 | XR_ITS ---
Examination: Abdomen sonogram, Limited Date and time of exam: September 15, 2024 1107 hours INDICATIONS: CT examination September 01, 2024 9 mm enhancing lesion dome of the liver on the right, elevated liver function tests Technique: Real-time santiago scale transabdominal sonographic images of the upper abdomen obtained. Findings: Contracted gallbladder, multiple stones Normal gallbladder wall Normal common bile duct 0.4 cm Pancreatic head 2.7 cm Liver 13.7 cm fatty infiltration no liver lesions noted Normal hepatopedal portal venous flow Patent IVC IMPRESSION: Cholelithiasis No focal liver lesions noted
== END | disposition home or self-care (01) ==
LOC: CDIM 10:55
PROVIDERS: PCP Internal Medicine Hematology & Oncology; Referring Provider Internal Medicine Hematology & Oncology; Visit Provider Internal Medicine Hematology & Oncology
DX: K80.20 Calculus of gallbladder without cholecystitis without obstruction (principal); C50.411 Malignant neoplasm of upper-outer quadrant of right female breast
CPT/HCPCS: 76705

== ENCOUNTER → 2024-09-28 | Outpatient (CLI) | payer MEDICAID, SELFPAY ==
[2024-09-28 11:26] LABS: Alanine Aminotransferase 49 U/L (10-49); Albumin, Serum 4.5 gm/dL (3.5-5.0); Alkaline Phosphatase 103 U/L (46-116); Anion Gap 10 (7-16); Aspartate Amino Transferase 43 U/L (0-34); BUN/Creatinine Ratio 11 Ratio (12-20); Bilirubin,Total 0.8 mg/dL (0.3-1.2); Blood Urea Nitrogen 9 mg/dL (9-23); Calcium 9.3 mg/dL (8.3-10.6); Calcium (Corrected) 9.3 mg/dL (8.5-10.1); Carbon Dioxide 27.7 mMol/L (20.0-31.0); Chloride 104 mMol/L (98-107); Creatinine (Component) 0.8 mg/dL (0.6-1.3); Globulin 2.2 gm/dL (2.3-3.5); Glucose 152 mg/dL (74-106); Osmolality,Calculated 284 (275-295); Potassium 3.5 mMol/L (3.4-5.1); Sodium 142 mMol/L (136-145); Total Protein 6.7 gm/dL (5.7-8.2); eGFR > 60 See Note
[2024-09-28 11:36] LABS: CA 15-3 10.1 U/mL (<32.4)
== END | disposition home or self-care (01) ==
PROVIDERS: PCP Internal Medicine Hematology & Oncology; Referring Provider Internal Medicine Hematology & Oncology; Visit Provider Internal Medicine Hematology & Oncology
DX: C50.411 Malignant neoplasm of upper-outer quadrant of right female breast (principal)
CPT/HCPCS: 36415; 80053; 86300

== ENCOUNTER 2024-09-29 10:48 | Outpatient (RCR) | payer MEDICAID, SELFPAY ==
--- NOTE | 2024-09-29 15:01 | CTCFLWUP_ITS ---
Patient: CORTNEY LYA : 1975 Page 2 of 2 FOLLOW UP NOTE DATE OF SERVICE: 09/29/2024 NAME: CORTNEY LAY ACCOUNT: [id number] : 1975 AGE: 48 INTERVAL HISTORY: Chief Complaint Cortney Xiao is a patient with a history of stage 3 breast cancer diagnosed in 2021, who presents for follow-up after completing Kadcyla treatment in July 2023. The patient reports experiencing joint pain as a side effect of her current treatment regimen. She was previously prescribed ibuprofen for pain management but has been cautious about taking it due to concerns about her liver health. The patient also mentions a left pelvic mass that was removed by her g ynecologist, which was determined to be a non-cancerous leiomyoma. Cortney has been adherent to her treatment plan, including regular dental check- ups, which are important for her ongoing Zometa treatment. She saw a dentist in March and had cavities filled. patient do not have any dental issues .The patient has not reported any significant changes in her overall health status or daily functioning since her last visit. Perla Lay presents for follow-up of her liver abnormalities and cancer management. She reports experiencing significant blood loss this month. The patient recently changed her medication to anastrozole. A small abnormality was previously detected on the patient's CT scan of the liver, which is currently under investigation. The nature and significance of this finding are unknown at this time, causing some anxiety for the patient. Her liver enzymes were elevated but have since decreased, and are now normal The patient has undergone a hysterectomy and oophorectomy in the past, as evidenced by the mention that she no longer has ovaries. The patient's treatment regimen is being adjusted. She has been instructed to discontinue all medications except for anastrozole, but patient stopped all medications . Medications and Supplements - Anastrozole - One tablet daily - Recently changed to this medication - Lupron - Discontinued (patient doesn't have ovaries) Review of Systems Gastrointestinal: Positive for blood loss. 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 - Hormone-blocking medication - Causing joint pain. - Menopause-inducing injections - Causing joint pain. - Zometa - Exemestane - To be stopped for one week. and will start on anastrozole after that - Ibuprofen - Prescribed for pain. - Patient cautious about taking due to liver concerns. Review of Systems Musculoskeletal: Positive for joint pain. ONCOLOGY HISTORY: DIAGNOSIS: Solid left pelvic mass (MRI 02/13/2023). Biopsy showed leiomyoma (09/28/2023) Stage IIIa ER positive, PA negative, HER2/arvin overexpressed infiltrating ductal carcinoma of the right breast (06/25/2022). S/p right axillary lymph node biopsy (12/31/2021) S/p 6 cycles of TCH chemotherapy in the neoadjuvant setting completed on 05/15/2022. Right modified radical mastectomy (06/25/2022) residual pT1b, pN2a disease was noted in the surgical specimen status s/p adjuvant radiation therapy to right chest (09/09/2022 - 10/29/2022) S/p Ado-Trastuzumab Emtansine (Kadcyla) adjuvant setting (09/10/2022?07/21/2023). He is also started on Lupron and Aromasin on 08/18/2022. Last menstrual period November 2021. BRCA 1and2 negative. REASON FOR TODAY?S VISIT: Transaminitis DATE OF DIAGNOSIS: April 2021 STAGE/TNM: TREATMENT HISTORY: Care?Plan Start?Date Cycle Day Intent Taxotere,?Carboplatin,?Trastuzumab?1 01/30/2022 1 21 Palliative KADCYLA?adjuvant 09/10/2022 1 21 Curative?(adjuvant) Lupron?Depot?3.75?monthly 08/19/2022 1 28 Curative?(adjuvant) Zoledronic?Acid?4?mg?adjuvant 06/30/2023 1 180 Curative?(adjuvant) HISTORY OF PRESENT ILLNESS: Cortney Lay is a 48-year-old S[place] speaking female without any significant health problems started noticing a lump growing in her right for last 2 years. Early April 2021: Patient had right breast lump biopsy in [place]. The pathology report is not available to me. Middle April 2021 she had what appears to be lumpectomy/excision biopsy of the right breast mass. 06/12/2021: Ms. Lay was seen by radiation oncologist Dr. Mattie silveira at [facility]. 07/07/2021: Right breast ultrasound? 07/07/2021: Bilateral screening mammogram- 08/06/2021: Right breast diagnostic mammogram? 08/24/2021: Right breast ultrasound? 10/19/2021: Bilateral breast MRI with and without contrast 11/13/2021: CT scan of the chest abdomen and pelvis with IV contrast 11/18/2021: Bone scan? 12/13/2021: PET/CT scan? 12/31/2021: Right axillary ultrasound core biopsy 01/30/2022: Ms. Lay received first cycle of TCH chemotherapy. 02/01/2022: CT scan of the abdomen and pelvis without contrast? 02/03/2022: MRI of the pelvis without contrast? 02/03/2022: Transvaginal ultrasound of pelvis? 02/12/2022: CT scan of the pelvis with IV contrast? 02/19/2022: Ms. Lay received second cycle of TCH chemotherapy. 03/13/2022: Ms. Lay had third cycle of TCH chemotherapy 04/03/2022: Ms. Lay had fourth cycle of TCH chemotherapy. 05/02/2022: MRI of the abdomen with and without contrast? 05/15/2022: Ms. Lay completed 6 cycles of TCH chemotherapy. 05/16/2022: Bilateral breast MRI with and without contrast 06/25/2022: Right modified radical mastectomy? 08/14/2022: PET/CT scan? 09/09/2022 - 10/29/2022: Ms. Lay received adjuvant radiation therapy to the right chest. 08/18/2022: Ms. Lay was started on triptorelin which was later changed to Lupron and Aromasin. 09/10/2022: Ms. Lay is started on a low trastuzumab Emtansine in the adjuvant setting. 01/09/2023: Pelvic ultrasound 02/13/2023: MRI of the pelvis without contrast 07/13/2023: Transvaginal ultrasound? 09/08/2023: MRI of the pelvis without contrast 09/28/2023: CT-guided biopsy of the left pelvic mass? OTHER MEDICAL HISTORY/CONDITIONS: FAMILY HISTORY: SOCIAL HISTORY: [employer]PER[employer] HISTORY: MEDICATIONS: 1. Arimidex - 1 mg 1 tab Daily 2. atorvastatin - 20 mg 1 tab Daily 3. hydrOXYzine HCl - 50 mg 1 tab Every day before sleep 4. metFORMIN - 500 mg 1 tab In the evening Medications Last Reconciled by Susy Singer MA on 09/08/2024 ALLERGIES: No Known Drug Allergies REVIEW OF SYSTEMS: A complete 14-point review of systems was performed and is negative except as noted in interval history. PHYSICAL EXAMINATION: VITAL SIGNS: PAIN: 0 - No pain ECOG Performance Status: 0 - Asymptomatic and fully active GENERAL APPEARANCE: Appears well, in no apparent distress, appropriately interactive. HEENT: Normocephalic, no temporal wasting, normal conjunctiva, no scleral icterus, normal hearing, lips without lesions, neck normal range of motion. CARDIOVASCULAR: Not assessed. PULMONARY: Normal respiratory effort, no respiratory distress or use of accessory muscles, speaking in full sentences, no tachypnea. EXTREMITIES: No pedal edema or cyanosis. SKIN: Normal skin appearance. NEUROLOGIC: Alert and oriented x4. PSHYCHIATRIC: Appropriate affect, mood normal, behavior normal, intact thought and speech. LABORATORY DATA: I have personally reviewed and interpreted each of the patient?s relevant lab tests, abnormal findings are below: Date 08/22/24 09/07/24 09/28/24 ??WHITE?BLOOD?COUNT?(Thou/mm3) 5.1 ?RED?BLOOD?COUNT?(Miln/mm3) 4.30 ?HEMOGLOBIN?(gm/dl) 13.3 ?HEMATOCRIT?(%) 37.7 ?PLATELET?COUNT?(Thou/mm3) 185 ?NEUTROPHILS?%,?AUTO?(%) 49 ?LYMPH?%,?AUTO?(%) 40 ?NEUTROPHILS,?AUTO?(Thou/mm3) 2.5 ?GLUCOSE,RANDOM?(mg/dL) 141?H 139?H 152?H ??BLOOD?UREA?NITROGEN?(mg/dL) 10 11 9 ??CREATININE?(mg/dL) 0.70 0.80 0.80 ??SODIUM?(mmol/L) 137 142 142 ??POTASSIUM?(mmol/L) 3.7 4.0 3.5 ??CHLORIDE?(mmol/L) 103 105 104 ??CrCl?(CandG)?(ml/min) 113.73 98.78 98.78 ??AST/SGOT?(Unit/L) 52?H 41?H 43?H ??ALT/SGPT?(Unit/L) 89?H 62?H 49 ??ALKALINE?PHOSPHATASE?(Unit/L) 175?H 151?H 103 ??BILIRUBIN,?TOTAL?(mg/dL) 0.7 0.7 0.8 ??PROTEIN?TOTAL?(gm/dl) 7.2 7.3 6.7 ??ALBUMIN,?SERUM?(gm/dl) 4.9 4.9 4.5 ??GLOBULIN?(gm/dl) 2.3 2.4 2.2?L ??ALBUMIN/GLOBULIN?RATIO 2.1 2.0 2.0 ??CALCIUM,?SERUM?(mg/dL) 10.0 9.3 9.3 ??CALCIUM?SERUM?(CORRECTED)?(mg/dL) 10.0 9.3 9.3 ASSESSMENT/PLAN: Cortney Xiao, female patient with history of stage 3 breast cancer diagnosed in 2021, treated with chemotherapy, mastectomy, and Kadcyla, now on hormone- blocking medication and oophorectomy , presenting with joint pain and elevated liver enzymes. Stage 3 Breast Cancer (History) Assessment: Patient was diagnosed with stage 3 breast cancer in 2021. Initial treatment included chemotherapy followed by mastectomy in 2022 due to persistent cancer. Kadcyla was administered post-mastectomy until July 2023. Currently on hormone-blocking medication. Recent echocardiogram from June is normal, and blood work is generally good. However, liver enzymes are slightly elevated, necessitating further investigation. -Avoid supplements that could affect liver function - Encourage increased water intake Plan: - Start anastrozole 1 tablet daily - Discontinue all other medications except for anastrozole - Monitor liver function tests for potential medication-induced hepatotoxicity - Follow-up in 3-4 weeks to assess tolerance and review liver enzyme results Abnormal liver finding Assessment: CT scan revealed a small, unidentified lesion in the liver. Liver enzymes were previously elevated but have since decreased, though they remain above normal limits. The etiology of the liver abnormalities is currently unknown. Differential diagnoses include benign lesions (e.g., hemangioma, focal nodular hyperplasia) or malignancy. Further investigation is warranted to characterize the lesion and determine the cause of persistent liver enzyme elevation. Ultrasound of the liver is negative Plan: - Order MRI of the liver to further evaluate the lesion identified on CT Dental Health Maintenance Assessment: Dental health is crucial for continuing Zometa treatment. Patient saw a dentist in March and had cavities filled, indicating proactive dental care. Plan: - Continue regular dental check-ups - Maintain good oral hygiene for ongoing Zometa treatment ORDERS: Order # Description [id number] Infusion 1 Hour [id number] Infusion 1 Hour [id number] Infusion 1 Hour RETURN TO CLINIC: BILLING AND COMPLIANCE: I reviewed external records from providers outside my specialty as summarized above. I spent a total of 50 minutes on this patient?s care on the day of their visit excluding time spent related to any billed procedures. This time includes time spent with the patient as well as time spent documenting in the medical record, reviewing patients records and tests, obtaining history, placing orders, communicating with other healthcare professionals, counseling the patient, family or caregiver, and/or care coordination for the diagnoses above. Electronically Signed by: Familia Hadley MD T: 2:58 PM CC: [place]? PCP: Familia Hadley Referring: Familia Hadley This document was completed utilizing speech recognition software. Grammatical errors, random word insertions, pronoun errors, and incomplete sentences are an occasional consequence of this system due to software limitations, ambient noise, and hardware issues. Any formal questions or concerns about the content, text or information contained within the body of this dictation should be directly addressed to the provider for clarification.
== END 2024-10-10 23:59 | disposition home or self-care (01) ==
LOC: SCTC 10:48
PROVIDERS: PCP Internal Medicine; Referring Provider Internal Medicine Hematology & Oncology; Visit Provider Internal Medicine Hematology & Oncology
DX: C50.411 Malignant neoplasm of upper-outer quadrant of right female breast (principal); Z17.0 Estrogen receptor positive status [ER+]; Z17.21 Progesterone receptor positive status; Z17.32 Human epidermal growth factor receptor 2 negative status; Z92.21 Personal history of antineoplastic chemotherapy; Z90.11 Acquired absence of right breast and nipple; R74.8 Abnormal levels of other serum enzymes; Z79.811 Long term (current) use of aromatase inhibitors; K76.89 Other specified diseases of liver
CPT/HCPCS: 99213; G0463

== ENCOUNTER → 2024-10-27 | Outpatient (CLI) | payer MEDICAID, SELFPAY ==
--- NOTE | 2024-10-27 12:00 | XR_ITS ---
Examination: MRI abdomen with intravenous contrast. MRI abdomen without intravenous contrast. Date and time of exam: October 27, 2024 1148 hours Comparison liver sonogram September 15, 2024, CT chest abdomen September 01, 2024 nuclear medicine bone scan 12/31/2022, PET/CT scan August 14, 2022 INDICATIONS: Diagnosis malignant neoplasm upper outer quadrant right female breast CT chest abdomen September 01, 2024 9 mm enhancing lesion dome of the liver on the right Technique: Multiple axial, sagittal and coronal sections of the abdomen obtained. Transverse images, TR 6020, TE 107. T1 weighted transverse images, TR 582, TE 9.5. T2-weighted sagittal images, TR 4000, TE 105. T2-weighted sagittal images, TR 4000, TE 5. Coronal images, TR 4210, TE 107. Axial and coronal images are obtained post 19 cc intravenous injection, gadolinium. Findings: Axial image 5 demonstrates 7 mm lesion dome of the liver on the right with increased signal on the T2-weighted images This lesion shows subtle enhancement on the postcontrast images No intrahepatic biliary tract dilatation Gallstones, negative for cholelithiasis Normal common hepatic common bile duct no stones No pancreatic mass Negative for splenomegaly Aorta normal size. No abdominal lymphadenopathy. No ascites IMPRESSION: 7 mm lesion dome of the liver on the right is confirmed with subtle enhancement on the postcontrast images Recommend 3 month follow-up MRI abdomen pre and postcontrast
== END | disposition home or self-care (01) ==
LOC: SMRI 11:09
PROVIDERS: Referring Provider Internal Medicine Hematology & Oncology; Visit Provider Internal Medicine Hematology & Oncology
DX: K76.9 Liver disease, unspecified (principal); C50.411 Malignant neoplasm of upper-outer quadrant of right female breast
CPT/HCPCS: 74183; A9579

== ENCOUNTER → 2024-10-28 | Outpatient (CLI) | payer MEDICAID, SELFPAY ==
[2024-10-28 17:33] LABS: Basophils # (Auto) 0.0 Thou/mm3 (0.0-0.2); Basophils % (Auto) 0 % (0-2.5); Eosinophils # (Auto) 0.0 Thou/mm3 (0.0-0.5); Eosinophils % (Auto) 0 % (0-10); Hematocrit 37.1 % (36.0-46.0); Hemoglobin 13.0 g/dL (12.0-16.0); Immature Granulocytes Auto 0.01 Thou/mm3 (0.00-0.00); Lymphocytes # (Auto) 2.5 Thou/mm3 (1.0-4.8); Lymphocytes % (Auto) 45 % (10-50); Mean Corpuscular HGB Conc 35.0 g/dl (31.0-37.0); Mean Corpuscular Hemoglobin 30.8 pg (25.0-35.0); Mean Corpuscular Volume 88 fL (80-100); Monocytes # (Auto) 0.5 Thou/mm3 (0.0-0.8); Monocytes % (Auto) 9 % (0-12); Neutrophils # (Auto) 2.6 Thou/mm3 (1.8-7.7); Neutrophils % (Auto) 46 % (37-80); Nucleated Red Blood Cell # 0.00 Thou/mm3 (0.00-0.00); Nucleated Red Blood Cell % 0 /100 WBC (0); Platelet Count 214 Thou/mm3 (140-440); RDW Standard Deviation 41.1 fL (36.4-46.3); Red Blood Count 4.22 Miln/mm3 (4.00-5.20); White Blood Count 5.7 Thou/mm3 (3.6-11.0)
[2024-10-28 17:45] LABS: Alanine Aminotransferase 46 U/L (10-49); Albumin, Serum 4.5 gm/dL (3.5-5.0); Albumin/Globulin Ratio 1.8 (1.2-2.2); Alkaline Phosphatase 93 U/L (46-116); Anion Gap 11 (7-16); Aspartate Amino Transferase 39 U/L (0-34); BUN/Creatinine Ratio 13 Ratio (12-20); Bilirubin,Total 0.5 mg/dL (0.3-1.2); Blood Urea Nitrogen 13 mg/dL (9-23); Calcium 9.3 mg/dL (8.3-10.6); Calcium (Corrected) 9.3 mg/dL (8.5-10.1); Carbon Dioxide 25.5 mMol/L (20.0-31.0); Chloride 105 mMol/L (98-107); Creatinine (Component) 1.0 mg/dL (0.6-1.3); Globulin 2.5 gm/dL (2.3-3.5); Glucose 182 mg/dL (74-106); Osmolality,Calculated 286 (275-295); Potassium 3.8 mMol/L (3.4-5.1); Sodium 141 mMol/L (136-145); Total Protein 7.0 gm/dL (5.7-8.2); eGFR > 60 See Note
== END | disposition home or self-care (01) ==
LOC: COPL 16:33
PROVIDERS: PCP Internal Medicine; Referring Provider Internal Medicine Hematology & Oncology; Visit Provider Internal Medicine Hematology & Oncology
DX: C50.411 Malignant neoplasm of upper-outer quadrant of right female breast (principal)
CPT/HCPCS: 36415; 80053; 85025

== ENCOUNTER 2024-10-31 08:33 | Outpatient (RCR) | payer MEDICAID, SELFPAY ==
--- NOTE | 2024-11-03 08:35 | CTCFLWUP_ITS ---
Patient: CORTNEY LAY : 1975 Page 2 of 2 FOLLOW UP NOTE DATE OF SERVICE: 10/31/2024 NAME: CORTNEY LAY ACCOUNT: [id number] : 1975 AGE: 49 INTERVAL HISTORY: Chief Complaint Cortney Xiao is a patient with a history of stage 3 breast cancer diagnosed in 2021, who presents for follow-up after completing Kadcyla treatment in July 2023. Patient had been having transaminitis. At last visit after completion of Kadcyla , patient was stopped to have any supplements other than anastrozole. Patient is here to review the results ,Cortney has been adherent to her treatment plan, including regular dental check- ups, which are important for her ongoing Zometa treatment. She saw a dentist in March and had cavities filled. patient do not have any dental issues .will start Zometa as an adjuvant therapy for breast cancer A small abnormality was previously detected on the patient's CT scan of the liver, and MRI was ordered. MRI will be followed on this visiT.. Patient takes her calcium and vitamin D as prescribed .The patient has undergone a hysterectomy and oophorectomy in the past, as evidenced by the mention that she no longer has ovaries. She is still taking her anastrozole . review of Systems Gastrointestinal: Positive for blood loss. Objective: Laboratory, Imaging, and Diagnostic Test Results - CT scan: Small lesion noted on the liver -MRI showed small lesion and recommendation is to repeat MRI in 3 months - Cardiac function tests: Normal heart function Medical History - Stage 3 breast cancer diagnosed in 2021 - Diabetes (implied by mention of diabetes medication) Surgical History - Mastectomy in 2022 for persistent breast cancer - Left pelvic mass removal (leiomyoma) by regulatory affairs analyst Medications and Supplements - chemo Finished in July 2023. - Hormone-blocking medication - Causing joint pain. - Menopause-inducing injections - Causing joint pain. - Zometa - Exemestane - To be stopped for one week. and will start on anastrozole after that - Ibuprofen - Prescribed for pain. - Patient cautious about taking due to liver concerns. Review of Systems Musculoskeletal: Positive for joint pain. ONCOLOGY HISTORY: DIAGNOSIS: Solid left pelvic mass (MRI 02/13/2023). Biopsy showed leiomyoma (09/28/2023) Stage IIIa ER positive, AK negative, HER2/arvin overexpressed infiltrating ductal carcinoma of the right breast (06/25/2022). S/p right axillary lymph node biopsy (12/31/2021) S/p 6 cycles of TCH chemotherapy in the neoadjuvant setting completed on 05/15/2022. Right modified radical mastectomy (06/25/2022) residual pT1b, pN2a disease was noted in the surgical specimen status s/p adjuvant radiation therapy to right chest (09/09/2022 - 10/29/2022) S/p Ado-Trastuzumab Emtansine (Kadcyla) adjuvant setting (09/10/2022?07/21/2023). He is also started on Lupron and Aromasin on 08/18/2022. Last menstrual period November 2021. BRCA 1and2 negative. REASON FOR TODAY?S VISIT: Transaminitis DATE OF DIAGNOSIS: April 2021 STAGE/TNM: TREATMENT HISTORY: Care?Plan Start?Date Cycle Day Intent Taxotere,?Carboplatin,?Trastuzumab?1 01/30/2022 1 21 Palliative KADCYLA?adjuvant 09/10/2022 1 21 Curative?(adjuvant) Lupron?Depot?3.75?monthly 08/19/2022 1 28 Curative?(adjuvant) Zoledronic?Acid?4?mg?adjuvant 06/30/2023 1 180 Curative?(adjuvant) HISTORY OF PRESENT ILLNESS: Cortney Lay is a 49-year-old S[place] speaking female without any significant health problems started noticing a lump growing in her right for last 2 years. Early April 2021: Patient had right breast lump biopsy in [place]. The pathology report is not available to me. Middle of April 2021 she had what appears to be lumpectomy/excision biopsy of the right breast mass. 06/12/2021: Ms. Lay was seen by radiation oncologist Dr. Mattie silveira at [facility]. 07/07/2021: Right breast ultrasound? 07/07/2021: Bilateral screening mammogram- 08/06/2021: Right breast diagnostic mammogram? 08/24/2021: Right breast ultrasound? 10/19/2021: Bilateral breast MRI with and without contrast 11/13/2021: CT scan of the chest abdomen and pelvis with IV contrast 11/18/2021: Bone scan? 12/13/2021: PET/CT scan? 12/31/2021: Right axillary ultrasound core biopsy 01/30/2022: Ms. Lay received first cycle of TCH chemotherapy. 02/01/2022: CT scan of the abdomen and pelvis without contrast? 02/03/2022: MRI of the pelvis without contrast? 02/03/2022: Transvaginal ultrasound of pelvis? 02/12/2022: CT scan of the pelvis with IV contrast? 02/19/2022: Ms. Lay received second cycle of TCH chemotherapy. 03/13/2022: Ms. Lay had third cycle of TCH chemotherapy 04/03/2022: Ms. Lay had fourth cycle of TCH chemotherapy. 05/02/2022: MRI of the abdomen with and without contrast? 05/15/2022: Ms. Lay completed 6 cycles of TCH chemotherapy. 05/16/2022: Bilateral breast MRI with and without contrast 06/25/2022: Right modified radical mastectomy? 08/14/2022: PET/CT scan? 09/09/2022 - 10/29/2022: Ms. Lay received adjuvant radiation therapy to the right chest. 08/18/2022: Ms. Lay was started on triptorelin which was later changed to Lupron and Aromasin. 09/10/2022: Ms. Lay is started on a low trastuzumab Emtansine in the adjuvant setting. 01/09/2023: Pelvic ultrasound 02/13/2023: MRI of the pelvis without contrast 07/13/2023: Transvaginal ultrasound? 09/08/2023: MRI of the pelvis without contrast 09/28/2023: CT-guided biopsy of the left pelvic mass? 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 Arimidex - 1 mg 1 tab Daily 2. hydrOXYzine HCl - 50 mg 1 tab Every day before sleep 3. metFORMIN - 500 mg 1 tab In the evening Medications Last Reconciled by Susy Singer MA on 10/31/2024 ALLERGIES: No Known Drug Allergies REVIEW OF SYSTEMS: A complete 14-point review of systems was performed and is negative except as noted in interval history. PHYSICAL EXAMINATION: VITAL SIGNS: Temperature?98.2, B/P?104/68, Oxygen?Saturation?99% Weight?162?lbs PAIN: 0 - No pain ECOG Performance Status: 0 - Asymptomatic and fully active GENERAL APPEARANCE: Appears well, in no apparent distress, appropriately interactive. HEENT: Normocephalic, no temporal wasting, normal conjunctiva, no scleral icterus, normal hearing, lips without lesions, neck normal range of motion. CARDIOVASCULAR: Not assessed. PULMONARY: Normal respiratory effort, no respiratory distress or use of accessory muscles, speaking in full sentences, no tachypnea. EXTREMITIES: No pedal edema or cyanosis. SKIN: Normal skin appearance. NEUROLOGIC: Alert and oriented x4. PSHYCHIATRIC: Appropriate affect, mood normal, behavior normal, intact thought and speech. LABORATORY DATA: I have personally reviewed and interpreted each of the patient?s relevant lab tests, abnormal findings are below: Date 09/07/24 09/28/24 10/28/24 ??WHITE?BLOOD?COUNT?(Thou/mm3) ? ? 5.7 ??RED?BLOOD?COUNT?(Miln/mm3) ? ? 4.22 ??HEMOGLOBIN?(gm/dl) ? ? 13.0 ??HEMATOCRIT?(%) ? ? 37.1 ??PLATELET?COUNT?(Thou/mm3) ? ? 214 ??NEUTROPHILS?%,?AUTO?(%) ? ? 46 ??LYMPH?%,?AUTO?(%) ? ? 45 ??NEUTROPHILS,?AUTO?(Thou/mm3) ? ? 2.6 ??GLUCOSE,RANDOM?(mg/dL) 139?H 152?H 182?H ??BLOOD?UREA?NITROGEN?(mg/dL) 11 9 13 ??CREATININE?(mg/dL) 0.80 0.80 1.00 ??SODIUM?(mmol/L) 142 142 141 ??POTASSIUM?(mmol/L) 4.0 3.5 3.8 ??CHLORIDE?(mmol/L) 105 104 105 ??CrCl?(CandG)?(ml/min) 98.78 98.78 78.94 ??AST/SGOT?(Unit/L) 41?H 43?H 39?H ??ALT/SGPT?(Unit/L) 62?H 49 46 ??ALKALINE?PHOSPHATASE?(Unit/L) 151?H 103 93 ??BILIRUBIN,?TOTAL?(mg/dL) 0.7 0.8 0.5 ??PROTEIN?TOTAL?(gm/dl) 7.3 6.7 7.0 ??ALBUMIN,?SERUM?(gm/dl) 4.9 4.5 4.5 ??GLOBULIN?(gm/dl) 2.4 2.2?L 2.5 ??ALBUMIN/GLOBULIN?RATIO 2.0 2.0 1.8 ??CALCIUM,?SERUM?(mg/dL) 9.3 9.3 9.3 ??CALCIUM?SERUM?(CORRECTED)?(mg/dL) 9.3 9.3 9.3 ASSESSMENT/PLAN: Cortney Xiao, female patient with history of stage 3 breast cancer diagnosed in 2021, treated with chemotherapy, mastectomy, and Kadcyla, now on hormone- blocking medication and oophorectomy , presenting with joint pain and elevated liver enzymes. Stage 3 Breast Cancer ) s/p treatment now on maintenance therapy with anastrozole Assessment: Patient was diagnosed with stage 3 breast cancer in 2021. Initial treatment included chemotherapy followed by mastectomy in 2022 due to persistent cancer. Kadcyla was administered post-mastectomy until July 2023. Currently on hormone-blocking medication. Recent echocardiogram from June is normal, . Patient's liver enzymes normalized after stopping metformin and statin Continue anastrozole #2 transaminitis likely from diabetic drugs or statins Patient's liver normalized once medication was held Advised to restart metformin after seeing her PCP and then slowly add statin to see which of them is causing symptoms Patient told to avoid alcohol as Tylenol Abnormal liver finding MRI shows small lesion Will follow-up with repeat MRI in 3 months as per IR recommendation Bisphosphonate for adjuvant breast cancer As patient have osteopenia Will start Zometa along with calcium and vitamin D daily RTC with MRI in 3 months ORDERS: Order # Description [id number] MRI + Abdomen + With W/O Contrast [id number] Comprehensive Metabolic Panel - 12 + CBC with Auto Diff + MD Follow Up 3 Months RETURN TO CLINIC: I reviewed the diagnosis, prognosis, and recommended treatment/procedure options with the patient (and/or their legal office services representative), including the potential benefits, risks, side effects and alternative therapies. We also discussed the option of no treatment and the possibility of clinical trial participation, if applicable. All questions were addressed, and they demonstrated understanding. They provided informed consent to proceed with the proposed plan of care. BILLING AND COMPLIANCE: I reviewed external records from providers outside my specialty as summarized above. I spent a total of 50 minutes on this patient?s care on the day of their visit excluding time spent related to any billed procedures. This time includes time spent with the patient as well as time spent documenting in the medical record, reviewing patients records and tests, obtaining history, placing orders, communicating with other healthcare professionals, counseling the patient, family or caregiver, and/or care coordination for the diagnoses above. Electronically Signed by: Familia Hadley MD T: 8:33 AM CC: Varun?Mattie? PCP: Kyrie Hui Referring: Familia Hadley This document was completed utilizing speech recognition software. Grammatical errors, random word insertions, pronoun errors, and incomplete sentences are an occasional consequence of this system due to software limitations, ambient noise, and hardware issues. Any formal questions or concerns about the content, text or information contained within the body of this dictation should be directly addressed to the provider for clarification.
== END 2024-11-10 23:59 | disposition home or self-care (01) ==
LOC: SCTC 08:33
PROVIDERS: PCP Family Medicine; Referring Provider Internal Medicine Hematology & Oncology; Visit Provider Internal Medicine Hematology & Oncology
DX: C50.411 Malignant neoplasm of upper-outer quadrant of right female breast (principal); Z17.0 Estrogen receptor positive status [ER+]; Z17.22 Progesterone receptor negative status; Z17.31 Human epidermal growth factor receptor 2 positive status; Z79.811 Long term (current) use of aromatase inhibitors; Z92.21 Personal history of antineoplastic chemotherapy; Z90.11 Acquired absence of right breast and nipple; R74.01 Elevation of levels of liver transaminase levels; K76.89 Other specified diseases of liver; M85.80 Other specified disorders of bone density and structure, unspecified site
CPT/HCPCS: 99213; G0463

== ENCOUNTER → 2024-11-06 | Outpatient (CLI) | payer MEDICAID, SELFPAY ==
--- NOTE | 2024-11-06 13:30 | ECHO_ITS ---
Transthoracic Echo Report Ht (in): 66 Wt (lb): 175 Exam Location: Echo Lab Status: Preadmit Security Control Center Operator: Larissa German Indications: Procedure Performed: BP: / HR: Technical Quality: Technically difficult study MEASUREMENTS (Male / Female) Normal Values 2D ECHO LV Diastolic Diameter PLAX 4.0 cm 4.2 - 5.9 / 3.9 - 5.3 cm LV Systolic Diameter PLAX 2.5 cm IVS Diastolic Thickness 0.5 cm 0.6 - 1.0 / 0.6 - 0.9 cm LVPW Diastolic Thickness 0.8 cm 0.6 - 1.0 / 0.6 - 0.9 cm LV Relative Wall Thickness 0.3 LVOT Diameter 1.7 cm Aortic Root Diameter 2.6 cm LA Systolic Diameter LX 2.5 cm 3.0 - 4.0 / 2.7 - 3.8 cm LV Ejection Fraction MOD BP 55.2 % >= 55 % LV Ejection Fraction MOD 4C 54.3 % LV Ejection Fraction 4C AL 55.3 % LV Ejection Fraction MOD 2C 56.8 % LV Ejection Fraction 2C AL 60.4 % LA Volume Index 13.2 cm?/m? 16 - 28 cm?/m? M-MODE Aortic Root Diameter MM 2.7 cm LA Systolic Diameter MM 2.7 cm LA Ao Ratio MM 1.0 AV Cusp Separation MM 2.0 cm DOPPLER AV Peak Velocity 116.0 cm/s AV Peak Gradient 5.4 mmHg AV Mean Gradient 3.0 mmHg AV Velocity Time Integral 24.7 cm LVOT Peak Velocity 94.5 cm/s LVOT Peak Gradient 3.6 mmHg LVOT Velocity Time Integral 19.6 cm AV Area Cont Eq vti 1.8 cm? AV Area Cont Eq pk 1.8 cm? MV Area PHT 4.3 cm? Mitral E Point Velocity 59.2 cm/s Mitral A Point Velocity 58.7 cm/s Mitral E to A Ratio 1.0 LV E' Lateral Velocity 7.1 cm/s Mitral E to LV E' Lateral Ratio 8.4 LV E' Septal Velocity 6.7 cm/s Mitral E to LV E' Septal Ratio 8.8 PV Peak Velocity 97.7 cm/s PV Peak Gradient 3.8 mmHg FINDINGS Left Ventricle Normal left ventricular size, wall thickness, systolic function with no obvious regional wall motion abnormalities. Normal left ventricular diastolic filling pattern for age. The ejection fraction is visually estimated at 55-60%. Right Ventricle The right ventricle is normal in size and systolic function. Brand signed present. Left Atrium The left atrium is normal by two-dimensional, color flow and Doppler imaging with no structural abnormalities, no thrombus formation present. Right Atrium The right atrium is normal by two-dimensional imaging, color flow and Doppler imaging with no structural abnormalities, no thrombus formation present. Atrial Septum The interatrial septum appears normal with no evidence of a shunt. Aorta The aorta is normal by two-dimensional, color flow and Doppler interrogation. Mitral Valve The mitral valve is normal by two-dimensional, color flow and Doppler interrogation. Trace mitral regurgitation. Aortic Valve The aortic valve is trileaflet and normal by two-dimensional, color flow and Doppler interrogation. There is no significant aortic valve regurgitation. Tricuspid Valve The tricuspid valve is normal by two-dimensional, color flow and Doppler interrogation. There is trace tricuspid valve regurgitation. Pulmonic Valve The pulmonic valve is not well visualized. There is no significant pulmonic valve regurgitation. Vessels The pulmonary artery appears normal. The inferior vena cava pulmonary and hepatic veins appear normal. Pericardium The pericardium is normal by two-dimensional imaging. There is no significant pericardial effusion. CONCLUSIONS Indication: Malignant neoplasm of upper-out quadrnat of right female breast Normal LV size and function. Normal left ventricular diastolic filling pattern for age. Estimated EF at 55-60%. The RV is normal in size and systolic function. Brand signed present. Trace MR and TR. Dandy Thomas (Electronically Signed) Final Date: 07 November 2024 09:09
== END | disposition home or self-care (01) ==
LOC: SDIM 11-10 07:26
PROVIDERS: PCP Family Medicine; Referring Provider Internal Medicine Hematology & Oncology; Visit Provider Internal Medicine Hematology & Oncology
DX: I08.1 Rheumatic disorders of both mitral and tricuspid valves (principal); C50.411 Malignant neoplasm of upper-outer quadrant of right female breast
CPT/HCPCS: 93306

== ENCOUNTER → 2025-01-30 | Outpatient (CLI) | payer MEDICAID, SELFPAY ==
[2025-01-30 12:17] LABS: Basophils # (Auto) 0.0 Thou/mm3 (0.0-0.2); Basophils % (Auto) 1 % (0-2.5); Eosinophils # (Auto) 0.0 Thou/mm3 (0.0-0.5); Eosinophils % (Auto) 1 % (0-10); Hematocrit 39.1 % (36.0-46.0); Hemoglobin 12.8 g/dL (12.0-16.0); Immature Granulocytes Auto 0.02 Thou/mm3 (0.00-0.00); Lymphocytes # (Auto) 2.5 Thou/mm3 (1.0-4.8); Lymphocytes % (Auto) 42 % (10-50); Mean Corpuscular HGB Conc 32.7 g/dl (31.0-37.0); Mean Corpuscular Hemoglobin 29.6 pg (25.0-35.0); Mean Corpuscular Volume 90 fL (80-100); Monocytes # (Auto) 0.6 Thou/mm3 (0.0-0.8); Monocytes % (Auto) 10 % (0-12); Neutrophils # (Auto) 2.8 Thou/mm3 (1.8-7.7); Neutrophils % (Auto) 46 % (37-80); Nucleated Red Blood Cell # 0.00 Thou/mm3 (0.00-0.00); Nucleated Red Blood Cell % 0 /100 WBC (0); Platelet Count 206 Thou/mm3 (140-440); RDW Standard Deviation 44.6 fL (36.4-46.3); Red Blood Count 4.33 Miln/mm3 (4.00-5.20); White Blood Count 6.0 Thou/mm3 (3.6-11.0)
[2025-01-30 12:23] LABS: Alanine Aminotransferase 54 U/L (10-49); Albumin, Serum 5.1 gm/dL (3.5-5.0); Albumin/Globulin Ratio 2.0 (1.2-2.2); Alkaline Phosphatase 108 U/L (46-116); Anion Gap 12 (7-16); Aspartate Amino Transferase 45 U/L (0-34); BUN/Creatinine Ratio 9 Ratio (12-20); Bilirubin,Total 0.6 mg/dL (0.3-1.2); Blood Urea Nitrogen 7 mg/dL (9-23); Calcium 10.0 mg/dL (8.3-10.6); Calcium (Corrected) 10.0 mg/dL (8.5-10.1); Carbon Dioxide 26.2 mMol/L (20.0-31.0); Chloride 104 mMol/L (98-107); Creatinine (Component) 0.8 mg/dL (0.6-1.3); Globulin 2.6 gm/dL (2.3-3.5); Glucose 103 mg/dL (74-106); Osmolality,Calculated 281 (275-295); Potassium 3.8 mMol/L (3.4-5.1); Sodium 142 mMol/L (136-145); Total Protein 7.7 gm/dL (5.7-8.2); eGFR > 60 See Note
== END | disposition home or self-care (01) ==
LOC: SCTO 11:19
PROVIDERS: PCP Family Medicine; Referring Provider Internal Medicine Hematology & Oncology; Visit Provider Internal Medicine Hematology & Oncology
DX: C50.411 Malignant neoplasm of upper-outer quadrant of right female breast (principal)
CPT/HCPCS: 36415; 80053; 85025

== ENCOUNTER 2025-01-31 10:43 | Outpatient (RCR) | payer MEDICAID, SELFPAY ==
--- NOTE | 2025-01-31 11:55 | CTCFLWUP_ITS ---
Patient: CORTNEY LAY : 1975 Page 11 of 13 FOLLOW UP NOTE DATE OF SERVICE: 01/31/2025 NAME: CORTNEY LAY ACCOUNT: [id number] : 1975 AGE: 49 INTERVAL HISTORY: Chief Complaint Cortney Xiao is a patient with a history of stage 3 breast cancer diagnosed in 2021, who presents for follow-up after completing Kadcyla treatment in July 2023. Patient had been having transaminitis. At last visit after completion of Kadcyla , patient was stopped to have any supplements other than anastrozole. Patient is here to review the results of her labs ,Cortney has been adherent to her treatment plan, including regular dental check- ups, which are important for her ongoing Zometa treatment. She saw a dentist in March and had cavities filled. patient do not have any dental issues .will start Zometa as an adjuvant therapy for breast cancer A small abnormality was previously detected on the patient's CT scan of the liver, and MRI was ordered. MRI not completed .. Patient takes her calcium and vitamin D as prescribed .The patient has undergone a hysterectomy and oophorectomy in the past, as evidenced by the mention that she no longer has ovaries. She is still taking her anastrozole . review of Systems Gastrointestinal: Positive for blood loss. Objective: Laboratory, Imaging, and Diagnostic Test Results - CT scan: Small lesion noted on the liver -MRI showed small lesion and recommendation is to repeat MRI in 3 months - Cardiac function tests: Normal heart function Medical History - Stage 3 breast cancer diagnosed in 2021 - Diabetes (implied by mention of diabetes medication) Surgical History - Mastectomy in 2022 for persistent breast cancer - Left pelvic mass removal (leiomyoma) by photostat operator Medications and Supplements - chemo Finished in July 2023. - Hormone-blocking medication - Causing joint pain. - Menopause-inducing injections - Causing joint pain. - Zometa - Exemestane - To be stopped for one week. and will start on anastrozole after that - Ibuprofen - Prescribed for pain. - Patient cautious about taking due to liver concerns. Review of Systems Musculoskeletal: Positive for joint pain. ONCOLOGY HISTORY:?[facility] Hx? DIAGNOSIS: Solid left pelvic mass (MRI 02/13/2023). Biopsy showed leiomyoma (09/28/2023) Stage IIIa ER positive, IN negative, HER2/arvin overexpressed infiltrating ductal carcinoma of the right breast (06/25/2022). S/p right axillary lymph node biopsy (12/31/2021) S/p 6 cycles of TCH chemotherapy in the neoadjuvant setting completed on 05/15/2022. Right modified radical mastectomy (06/25/2022) residual pT1b, pN2a disease was noted in the surgical specimen status s/p adjuvant radiation therapy to right chest (09/09/2022 - 10/29/2022) S/p Ado-Trastuzumab Emtansine (Kadcyla) adjuvant setting (09/10/2022?07/21/2023). He is also started on Lupron and Aromasin on 08/18/2022. Last menstrual period November 2021. BRCA 1and2 negative. REASON FOR TODAY?S VISIT: Transaminitis DATE OF DIAGNOSIS: April 2021 STAGE/TNM: TREATMENT HISTORY: Care?Plan Start?Date Cycle Day Intent Taxotere,?Carboplatin,?Trastuzumab?1 01/30/2022 1 21 Palliative KADCYLA?adjuvant 09/10/2022 1 21 Curative?(adjuvant) Lupron?Depot?3.75?monthly 08/19/2022 1 28 Curative?(adjuvant) Zoledronic?Acid?4?mg?adjuvant 06/30/2023 1 180 Curative?(adjuvant) HISTORY OF PRESENT ILLNESS: Cortney Lay is a 49-year-old S[place] speaking female without any significant health problems started noticing a lump growing in her right for last 2 years. Early April 2021: Patient had right breast lump biopsy in [place]. The pathology report is not available to me. Middle of April 2021 she had what appears to be lumpectomy/excision biopsy of the right breast mass. 06/12/2021: Ms. Lay was seen by radiation oncologist Dr. Mattie silveira at [facility]. 07/07/2021: Right breast ultrasound? 07/07/2021: Bilateral screening mammogram- 08/06/2021: Right breast diagnostic mammogram? 08/24/2021: Right breast ultrasound? 10/19/2021: Bilateral breast MRI with and without contrast 11/13/2021: CT scan of the chest abdomen and pelvis with IV contrast 11/18/2021: Bone scan? 12/13/2021: PET/CT scan? 12/31/2021: Right axillary ultrasound core biopsy 01/30/2022: Ms. Lay received first cycle of TCH chemotherapy. 02/01/2022: CT scan of the abdomen and pelvis without contrast? 02/03/2022: MRI of the pelvis without contrast? 02/03/2022: Transvaginal ultrasound of pelvis? 02/12/2022: CT scan of the pelvis with IV contrast? 02/19/2022: Ms. Lay received second cycle of TCH chemotherapy. 03/13/2022: Ms. Lay had third cycle of TCH chemotherapy 04/03/2022: Ms. Lay had fourth cycle of TCH chemotherapy. 05/02/2022: MRI of the abdomen with and without contrast? 05/15/2022: Ms. Lay completed 6 cycles of TCH chemotherapy. 05/16/2022: Bilateral breast MRI with and without contrast 06/25/2022: Right modified radical mastectomy? 08/14/2022: PET/CT scan? 09/09/2022 - 10/29/2022: Ms. Lay received adjuvant radiation therapy to the right chest. 08/18/2022: Ms. Lay was started on triptorelin which was later changed to Lupron and Aromasin. 09/10/2022: Ms. Lay is started on a low trastuzumab Emtansine in the adjuvant setting. 01/09/2023: Pelvic ultrasound 02/13/2023: MRI of the pelvis without contrast 07/13/2023: Transvaginal ultrasound? 09/08/2023: MRI of the pelvis without contrast 09/28/2023: CT-guided biopsy of the left pelvic mass? MRI 10/27/2024 IMPRESSION: 7 mm lesion dome of the liver on the right is confirmed with subtle enhancement on the postcontrast images Recommend 3 month follow-up MRI abdomen pre and postcontrast OTHER MEDICAL HISTORY/CONDITIONS: FAMILY HISTORY: ?[facility]one Family Hx? 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 Arimidex - 1 mg 1 tab Daily 2. hydrOXYzine HCl - 50 mg 1 tab Every day before sleep 3. Gume Probiotic - 14 billion cell 1 Capsule Daily 4. metFORMIN - 500 mg 1 tab In the evening?Pal[facility]ra Meds? Medications Last Reconciled by Susy Rodgers MD on 01/31/2025 ALLERGIES: No Known Drug Allergies REVIEW OF SYSTEMS: A complete 14-point review of systems was performed and is negative except as noted in interval history. PHYSICAL EXAMINATION:?[facility] PE? VITAL SIGNS: Temperature?96.7, B/P?111/70, Oxygen?Saturation?96% Weight?152?lbs PAIN: 0 - No pain ECOG Performance Status: 0 - Asymptomatic and fully active GENERAL APPEARANCE: Appears well, in no apparent distress, appropriately interactive. HEENT: Normocephalic, no temporal wasting, normal conjunctiva, no scleral icterus, normal hearing, lips without lesions, neck normal range of motion. CARDIOVASCULAR: Not assessed. PULMONARY: Normal respiratory effort, no respiratory distress or use of accessory muscles, speaking in full sentences, no tachypnea. EXTREMITIES: No pedal edema or cyanosis. SKIN: Normal skin appearance. NEUROLOGIC: Alert and oriented x4. PSHYCHIATRIC: Appropriate affect, mood normal, behavior normal, intact thought and speech. LABORATORY DATA: I have personally reviewed and interpreted each of the patient?s relevant lab tests, abnormal findings are below: Date 10/28/24 01/30/25 ??WHITE?BLOOD?COUNT?(Thou/mm3) 5.7 6.0 ??RED?BLOOD?COUNT?(Miln/mm3) 4.22 4.33 ??HEMOGLOBIN?(gm/dl) 13.0 12.8 ??HEMATOCRIT?(%) 37.1 39.1 ??PLATELET?COUNT?(Thou/mm3) 214 206 ??NEUTROPHILS?%,?AUTO?(%) 46 46 ??LYMPH?%,?AUTO?(%) 45 42 ??NEUTROPHILS,?AUTO?(Thou/mm3) 2.6 2.8 ??GLUCOSE,RANDOM?(mg/dL) 182?H 103 ??BLOOD?UREA?NITROGEN?(mg/dL) 13 7?L ??CREATININE?(mg/dL) 1.00 0.80 ??SODIUM?(mmol/L) 141 142 ??POTASSIUM?(mmol/L) 3.8 3.8 ??CHLORIDE?(mmol/L) 105 104 ??CrCl?(CandG)?(ml/min) 78.94 98.68 ??AST/SGOT?(Unit/L) 39?H 45?H ??ALT/SGPT?(Unit/L) 46 54?H ??ALKALINE?PHOSPHATASE?(Unit/L) 93 108 ??BILIRUBIN,?TOTAL?(mg/dL) 0.5 0.6 ??PROTEIN?TOTAL?(gm/dl) 7.0 7.7 ??ALBUMIN,?SERUM?(gm/dl) 4.5 5.1?H ??GLOBULIN?(gm/dl) 2.5 2.6 ??ALBUMIN/GLOBULIN?RATIO 1.8 2.0 ??CALCIUM,?SERUM?(mg/dL) 9.3 10.0 ??CALCIUM?SERUM?(CORRECTED)?(mg/dL) 9.3 10.0 ASSESSMENT/PLAN:?Caridad Hadley Assessment/Plan? Cortney Xiao, female patient with history of stage 3 breast cancer diagnosed in 2021, treated with chemotherapy, mastectomy, and Kadcyla, now on hormone- blocking medication and oophorectomy , presenting with joint pain and elevated liver enzymes. Stage 3 Breast Cancer ) s/p treatment now on maintenance therapy with anastrozole Assessment: Patient was diagnosed with stage 3 breast cancer in 2021. Initial treatment included chemotherapy followed by mastectomy in 2022 due to persistent cancer. Kadcyla was administered post-mastectomy until July 2023. Currently on hormone-blocking medication. Recent echocardiogram from June is normal, . Patient's liver enzymes normalized after stopping metformin and statin Continue anastrozole #2 transaminitis likely from diabetic drugs or statins Patient's liver normalized once medication was held Advised to restart metformin after seeing her PCP and then slowly add statin to see which of them is causing symptoms Patient told to avoid alcohol as Tylenol Abnormal liver finding MRI shows small lesion Will follow-up with repeat MRI in 3 months as per IR recommendation. Ordered . Bisphosphonate for adjuvant breast cancer As patient have osteopenia Will start Zometa along with calcium and vitamin D daily RTC with MRI in 3 months ORDERS: Order # Description [id number] Follow Up 3 Months [id number] Infusion 1 Hour [id number] Infusion 1 Hour [id number] Infusion 1 Hour RETURN TO CLINIC: I reviewed the diagnosis, prognosis, and recommended treatment/procedure options with the patient (and/or their legal field representatives director), including the potential benefits, risks, side effects and alternative therapies. We also discussed the option of no treatment and the possibility of clinical trial participation, if applicable. All questions were addressed, and they demonstrated understanding. They provided informed consent to proceed with the proposed plan of care. BILLING AND COMPLIANCE: I reviewed external records from providers outside my specialty as summarized above. I spent a total of 50 minutes on this patient?s care on the day of their visit excluding time spent related to any billed procedures. This time includes time spent with the patient as well as time spent documenting in the medical record, reviewing patients records and tests, obtaining history, placing orders, communicating with other healthcare professionals, counseling the patient, family or caregiver, and/or care coordination for the diagnoses above. Electronically Signed by: Familia Hadley MD T: 11:52 AM CC: Varun?Mattie? PCP: Kyrie Hui Referring: Kyrie Hui This document was completed utilizing speech recognition software. Grammatical errors, random word insertions, pronoun errors, and incomplete sentences are an occasional consequence of this system due to software limitations, ambient noise, and hardware issues. Any formal questions or concerns about the content, text or information contained within the body of this dictation should be directly addressed to the provider for clarification.
== END 2025-02-10 23:59 | disposition home or self-care (01) ==
LOC: SCTC 10:43
PROVIDERS: PCP Family Medicine; Referring Provider Family Medicine; Visit Provider Internal Medicine Hematology & Oncology
DX: C50.411 Malignant neoplasm of upper-outer quadrant of right female breast (principal); Z17.0 Estrogen receptor positive status [ER+]; Z17.22 Progesterone receptor negative status; Z17.32 Human epidermal growth factor receptor 2 negative status; Z92.21 Personal history of antineoplastic chemotherapy; Z90.11 Acquired absence of right breast and nipple; Z92.3 Personal history of irradiation; Z79.811 Long term (current) use of aromatase inhibitors; R74.01 Elevation of levels of liver transaminase levels; M85.80 Other specified disorders of bone density and structure, unspecified site
CPT/HCPCS: 99212; G0463

== ENCOUNTER 2025-02-28 12:55 | Outpatient (RCR) | payer MEDICAID, SELFPAY | END 2025-03-12 23:59 | disposition home or self-care (01) | LOC: SCTC 12:55 | PROVIDERS: PCP Internal Medicine; Referring Provider Internal Medicine Hematology & Oncology; Visit Provider Internal Medicine Hematology & Oncology | DX: R74.01 Elevation of levels of liver transaminase levels (principal); M85.80 Other specified disorders of bone density and structure, unspecified site; C50.411 Malignant neoplasm of upper-outer quadrant of right female breast; Z17.0 Estrogen receptor positive status [ER+]; Z17.22 Progesterone receptor negative status; Z17.32 Human epidermal growth factor receptor 2 negative status; Z79.811 Long term (current) use of aromatase inhibitors; Z92.21 Personal history of antineoplastic chemotherapy; Z90.11 Acquired absence of right breast and nipple | CPT/HCPCS: 96365; J3489; J7040 ==